=== PATIENT | female | born 1980 | race Caucasian/White ===

== ENCOUNTER 2016-03-19 13:34 | Inpatient (IN) | payer OTHER ==
[~2016-03-19] VITALS: Ht 162.6 cm; Wt 166.0 kg
[~2016-03-19 13:34] MED LIST: ACETAMINOPHEN-1 EAC1 PO; AMOXICILLIN500 M1 PO; AMOXICILLIN875 MG PO; ANTI-ANXIETY MED; ANTIDEPRESSANT; ATENOLOL/CHLOR1 EAC1 PO; AUGMENTIN875 MG PO; AZITHROMYCIN500 M1 PO; BACTRIM,SEPT1 TABLET PO; BENTYL10 MG PO; BENZONATATE200 MG PO; BUPROPION XL150 MG PO; BUTALB-APAP-CA1 EACH PO; CEFPROZIL500 MG PO; CEFTIN500 MG PO; CHERATUSSIN AC473 ML PO; CLEOCIN300 MG PO; CLINDAMYCIN HC300 MG PO; CLONAZEPAM0.5 MG PO; CYCLOBENZAPRINE10 MG PO; DICLOFENAC SOD100 MG PO; DICLOFENAC SODI75 MG PO; DITROPAN XL10 MG PO; DOXYCYCLINE HY100 MG PO; DULERA 200 MCG/13 GM IH; DUONEB 2.5-0.5 M3 ML AEROSOL; ENDOCET 5-3251 EACH PO; ERGOCALCIF50000 UNIT PO; ESCITALOPRAM OX10 MG PO; FIORICET 50-301 EACH PO; FIORICET,ESG1 TABLET PO; FLEXERIL10 MG PO; FLOMAX0.4 MG PO; FLONASE16 G1 BOTH NARES; GABAPENTIN100 MG PO; GEODON40 MG PO; HYCODAN SYRUP480 ML PO; HYDROCHLOROTH12.5 M3 PO; HYDROCODON-ACE1 EAC7 PO; HYDROCODON-ACE1 EACH; IBUPROFEN600 MG PO; IBUPROFEN800 MG PO; IMITREX100 MG PO; INDOCIN25 MG PO; KEFLEX500 MG PO; KETOROLAC TROME10 MG PO; KLONOPIN0.5 M1 PO; LEVAQUIN500 MG PO; LEVAQUIN750 MG PO; LEXAPRO10 MG PO; LIDOCAINE20 MG/1 M5 PO; LISINOPRIL-HCT1 EACH PO; LORTAB 5-325 M1 EACH PO; MACROBID100 MG PO; MEDROL DOSEPAK4 MG PO; MIRTAZAPINE15 MG PO; MOBIC15 MG PO; MOTION SICKNESS25 M4 PO; MOTRIN600 MG PO; MOTRIN800 MG PO; NAPROSYN500 MG PO; NAPROXEN375 MG PO; NAPROXEN500 MG PO; NICOTINE PATCH1 EAC2 TD; NORCO 5/3251 TABLET PO; NORCO 7.5/321 TABLET PO; OMEPRAZOLE20 M2 PO; OXYBUTYNIN CHLO10 MG PO; PANTOPRAZOLE SO40 MG PO; PAXIL30 MG PO; PEN-VEE K,VEET500 MG PO; PERCOCET 10/1 TABLET PO; PERCOCET 5/31 TABLET PO; PHENERGAN-CODE120 ML PO; PIROXICAM10 MG PO; PREDNISONE10 M1 PO; PREDNISONE10 MG PO; PREDNISONE20 MG PO; PREDNISONE50 MG PO; PROAIR HFA8.5 GM IH; PROBIOTIC250 MG PO; PROMETHAZINE HC25 M1 PO; PROVENTIL,2.5 MG/3 M IH; PROVERA,CYCRIN10 MG PO; PYRIDIUM200 MG PO; QUETIAPINE FUM100 MG PO; QUETIAPINE FUM300 MG PO; QUETIAPINE FUMA50 MG PO; REGLAN10 MG PO; REMERON15 M2 PO; ROBITUSSIN AC,T10 ML PO; ROBITUSSIN100 MG/5 M PO; SEROQUEL300 MG PO; SEROQUEL400 MG PO; SEROQUEL50 MG PO; SINGULAIR10 MG PO; SUMATRIPTAN SU100 MG PO; SYMBICORT60 INHALAT IH; TENORETIC 501 TABLET PO; TESSALON PERLE100 MG PO; TOPAMAX25 MG PO; TOPIRAMATE25 MG PO; TORADOL10 MG PO; TRAMADOL HCL50 MG PO; TYLENOL EXTRA500 MG PO; TYLENOL REGULA325 MG PO; TYLENOL WITH C1 EACH PO; ULTRACET1 TABLET PO; ULTRAM50 MG PO; VENTOLIN HFA18 GM IH; VITAMIN D250000 UNIT PO; VITAMIN D50000 UNI4 PO; VOLTAREN-XR100 MG PO; VOLTAREN75 MG PO; WELLBUTRIN XL150 MG PO; WELLBUTRIN XL300 MG PO; ZANTAC150 MG PO; ZEBUTAL 50-3251 EACH PO; ZITHROMAX Z-PA250 MG PO; ZITHROMAX250 MG PO; ZOFRAN ODT4 MG PO; ZOFRAN ODT8 MG PO; ZOLPIDEM TARTRAT5 MG PO; [UNRECOGNIZED DRUG - REMARK]
[2016-03-19 15:55] LABS: HEMATOCRIT 34.7 % (36.0-46.0); MCH 29.1 PG (29.0-34.0); MCV 85.5 FL (83-99); MEAN PLAT.VOLUME 8.9 uM^3 (9.5-12.4); PLATELET COUNT 179 K/uL (156-360); RBC DIS.WIDTH-CV 13.4 % (11.8-14.6); RED BLOOD COUNT 4.06 M/uL (3.80-5.20); WHITE BLOOD COUNT 3.4 K/uL (4.1-10.2)
[2016-03-19 16:06] LABS: CHLORIDE 104 mEq/L (99-109); POTASSIUM 3.4 mEq/L (3.7-5.4); SODIUM 138 mEq/L (136-147)
[2016-03-19 16:08] LABS: GLUCOSE 118 mg/dL (70-99)
[2016-03-19 16:09] LABS: ANION GAP 9 MEQ/L (2-14)
[2016-03-19 16:12] LABS: GFR ESTIMATE (CALCULATED) > 59 mL/min/
[2016-03-19 16:13] LABS: UREA NITROGEN (BUN) 10 mg/dL (9-23)
[2016-03-19 16:16] LABS: D-DIMER ELISA 1.45 mg/L FEU (< 0.57); INTER. NORMALIZED RATIO 1.1; PROTHROMBIN TIME 11.1 (9.2-11.2); PTT 28.9 (25-32)
[2016-03-19 16:18] LABS: TROP-I INTERPRETATION NEGATIVE; TROPONIN-I < 0.01 ng/mL (0.0-0.30)
[2016-03-19] MEDS ORDERED: PREDNISONE20 MG PO (18:56)
[2016-03-19] MEDS ORDERED: TYLENOL EXTRA500 MG PO (18:57)
[2016-03-19] MEDS ORDERED: CLONAZEPAM0.5 MG PO ×2 (18:57→18:58)
[2016-03-19] MEDS ORDERED: ZIPRASIDONE HCL40 MG PO (18:57)
[2016-03-19] MEDS ORDERED: LEXAPRO10 MG PO (18:57)
[2016-03-19] MEDS ORDERED: SEROQUEL300 MG PO ×2 (18:59)
[2016-03-19] MEDS ORDERED: BUPROPION XL300 MG PO (18:59)
[2016-03-19] MEDS ORDERED: GABAPENTIN300 MG PO ×2 (19:00)
[2016-03-19 21:20] LABS: TOTAL BILIRUBIN 0.5 mg/dL (0.0-1.0)
[2016-03-19 21:21] LABS: ALKALINE PHOSPHATASE 80 IU/L (3-129)
[2016-03-19 21:24] LABS: DIRECT BILIRUBIN 0.2 mg/dL (0.0-0.3)
[2016-03-19 21:55] VITALS: BP 128/60
[2016-03-20 04:00] VITALS: BP 132/63
[2016-03-20 07:03] LABS: EOSINOPHIL (%) 0 % (0-5); HEMATOCRIT 36.5 % (36.0-46.0); LYMPHOCYTE COUNT 0.6 K/uL (1.0-2.8); MCH 28.7 PG (29.0-34.0); MCV 84.5 FL (83-99); MEAN PLAT.VOLUME 9.2 uM^3 (9.5-12.4); MONOCYTE (%) 6.1 % (3-12); MONOCYTE COUNT 0.2 K/uL (0-0.8); NEUTROPHIL (%) 73.7 % (45-76); NEUTROPHIL COUNT 2.1 K/uL (1.8-6.4); PLATELET COUNT 199 K/uL (156-360); RBC DIS.WIDTH-CV 13.3 % (11.8-14.6); RBC DIS.WIDTH-SD 40.6 % (39-53); RED BLOOD COUNT 4.32 M/uL (3.80-5.20); WHITE BLOOD COUNT 2.8 K/uL (4.1-10.2)
[2016-03-20 07:35] VITALS: BP 153/83
[2016-03-20 07:36] LABS: ANION GAP 10 MEQ/L (2-14); CHLORIDE 104 MEQ/L (99-109); GFR ESTIMATE (CALCULATED) > 59 mL/min/; GLUCOSE 158 mg/dL (70-99); SAMPLE HEMOLYSIS CHECK 0; SAMPLE ICTERIC CHECK 0; SAMPLE LIPEMIA CHECK 0; SODIUM 139 MEQ/L (136-147); UREA NITROGEN (BUN) 11 mg/dL (9-23)
[2016-03-20 07:38] LABS: POTASSIUM 4.5 MEQ/L (3.7-5.4)
[2016-03-20 07:41] LABS: INTERNAL CONTROL VALID? YES
[2016-03-20 11:03] VITALS: BP 126/59
[2016-03-20 15:50] VITALS: BP 140/71
[2016-03-20 20:00] VITALS: BP 148/80
[2016-03-20 23:35] VITALS: BP 173/81
[2016-03-21 03:20] VITALS: BP 142/68
[2016-03-21 07:33] LABS: ANION GAP 11 MEQ/L (2-14); CHLORIDE 104 MEQ/L (99-109); GFR ESTIMATE (CALCULATED) > 59 mL/min/; GLUCOSE 183 mg/dL (70-99); POTASSIUM 4.4 MEQ/L (3.7-5.4); SAMPLE HEMOLYSIS CHECK 0; SAMPLE ICTERIC CHECK 0; SAMPLE LIPEMIA CHECK 0; SODIUM 138 MEQ/L (136-147); UREA NITROGEN (BUN) 14 mg/dL (9-23)
[2016-03-21 07:42] LABS: BASOPHIL COUNT 0.1 K/uL (0-0.1); EOSINOPHIL (%) 0 % (0-5); HEMATOCRIT 37.3 % (36.0-46.0); IMMATURE GRANULOCYTE (%) 0.2 % (0.0-0.7); LYMPHOCYTE COUNT 0.9 K/uL (1.0-2.8); MCH 29.4 PG (29.0-34.0); MCV 86.3 FL (83-99); MEAN PLAT.VOLUME 9.5 uM^3 (9.5-12.4); MONOCYTE (%) 7.4 % (3-12); MONOCYTE COUNT 0.4 K/uL (0-0.8); NEUTROPHIL (%) 73.5 % (45-76); NEUTROPHIL COUNT 3.7 K/uL (1.8-6.4); PLATELET COUNT 235 K/uL (156-360); RBC DIS.WIDTH-CV 13.4 % (11.8-14.6); RBC DIS.WIDTH-SD 42.4 % (39-53); RED BLOOD COUNT 4.32 M/uL (3.80-5.20)
[2016-03-21 07:46] VITALS: BP 112/68
[2016-03-21 11:57] VITALS: BP 142/84
[2016-03-21 15:00] VITALS: BP 132/78
[2016-03-22] VITALS: BP 142/83
[2016-03-22 07:51] VITALS: BP 117/65
[2016-03-22 09:04] LABS: HEMATOCRIT 39.9 % (36.0-46.0); MCH 28.6 PG (29.0-34.0); MCHC 32.8 G/DL (30.0-36.0); MCV 87.1 FL (83-99); MEAN PLAT.VOLUME 9.2 uM^3 (9.5-12.4); PLATELET COUNT 223 K/uL (156-360); RBC DIS.WIDTH-CV 13.7 % (11.8-14.6); RBC DIS.WIDTH-SD 43.2 % (39-53); RED BLOOD COUNT 4.58 M/uL (3.80-5.20); WHITE BLOOD COUNT 5.8 K/uL (4.1-10.2)
[2016-03-22 09:20] LABS: ANION GAP 11 MEQ/L (2-14); CHLORIDE 102 MEQ/L (99-109); POTASSIUM 4.7 MEQ/L (3.7-5.4); SAMPLE HEMOLYSIS CHECK 0; SAMPLE ICTERIC CHECK 0; SAMPLE LIPEMIA CHECK 0; SODIUM 136 MEQ/L (136-147)
[2016-03-22 09:25] LABS: GFR ESTIMATE (CALCULATED) > 59 mL/min/; GLUCOSE 221 mg/dL (70-99); UREA NITROGEN (BUN) 12 mg/dL (9-23)
[2016-03-22 09:36] LABS: BASOPHIL COUNT 0.1 K/uL (0-0.1); EOSINOPHIL (%) 0 % (0-5); IMMATURE GRANULOCYTE (%) 0.5 % (0.0-0.7); LYMPHOCYTE COUNT 0.8 K/uL (1.0-2.8); MONOCYTE (%) 3.8 % (3-12); MONOCYTE COUNT 0.2 K/uL (0-0.8); NEUTROPHIL (%) 80.8 % (45-76); NEUTROPHIL COUNT 4.7 K/uL (1.8-6.4)
[2016-03-22 16:01] VITALS: BP 138/92
[2016-03-23] VITALS: BP 143/87
[2016-03-23 07:12] LABS: HEMATOCRIT 40.3 % (36.0-46.0); MCH 28.6 PG (29.0-34.0); MCHC 33.3 G/DL (30.0-36.0); MCV 86.1 FL (83-99); MEAN PLAT.VOLUME 9.3 uM^3 (9.5-12.4); PLATELET COUNT 242 K/uL (156-360); RBC DIS.WIDTH-CV 13.5 % (11.8-14.6); RBC DIS.WIDTH-SD 42.5 % (39-53); RED BLOOD COUNT 4.68 M/uL (3.80-5.20); WHITE BLOOD COUNT 7.2 K/uL (4.1-10.2)
[2016-03-23 07:36] LABS: EOSINOPHIL (%) 0 % (0-5); IMMATURE GRANULOCYTE (%) 0.6 % (0.0-0.7); LYMPHOCYTE COUNT 0.9 K/uL (1.0-2.8); MONOCYTE (%) 4.6 % (3-12); MONOCYTE COUNT 0.3 K/uL (0-0.8); NEUTROPHIL (%) 82.6 % (45-76); NEUTROPHIL COUNT 5.9 K/uL (1.8-6.4)
[2016-03-23 07:39] LABS: ANION GAP 10 MEQ/L (2-14); CHLORIDE 98 MEQ/L (99-109); GFR ESTIMATE (CALCULATED) > 59 mL/min/; GLUCOSE 225 mg/dL (70-99); POTASSIUM 4.7 MEQ/L (3.7-5.4); SAMPLE HEMOLYSIS CHECK 0; SAMPLE ICTERIC CHECK 0; SAMPLE LIPEMIA CHECK 0; SODIUM 135 MEQ/L (136-147); UREA NITROGEN (BUN) 16 mg/dL (9-23)
[2016-03-23 07:45] VITALS: BP 130/70
[2016-03-23] MEDS ORDERED: CEFTIN500 MG PO (13:01)
[2016-03-23] MEDS ORDERED: SEROQUEL300 MG PO ×2 (13:01)
[2016-03-23] MEDS ORDERED: VENTOLIN HFA18 GM IH (13:01)
[2016-03-23] MEDS ORDERED: PROVENTIL,2.5 MG/3 M IH (13:01)
[2016-03-23] MEDS ORDERED: PREDNISONE20 MG PO (13:01)
[2016-03-23] MEDS ORDERED: GABAPENTIN300 MG PO ×2 (13:01)
== END 2016-03-23 13:20 | disposition home or self-care (01) | DRG 190 ==
LOC: EME 13:34 → 2EAST 20:18 → EDOF 20:18 → 2EAST 21:51
PROVIDERS: Emergency Medicine; Hospitalist; Internal Medicine
DX: J44.0 Chronic obstructive pulmonary disease with (acute) lower respiratory infection (principal); J15.9 Unspecified bacterial pneumonia; J45.901 Unspecified asthma with (acute) exacerbation; J96.01 Acute respiratory failure with hypoxia; J44.1 Chronic obstructive pulmonary disease with (acute) exacerbation; E87.6 Hypokalemia; E66.01 Morbid (severe) obesity due to excess calories; Z68.44 Body mass index [BMI] 60.0-69.9, adult; D64.9 Anemia, unspecified; F31.9 Bipolar disorder, unspecified; F41.9 Anxiety disorder, unspecified; Z87.891 Personal history of nicotine dependence
CPT/HCPCS: 71010; 71020; 71275; 80048; 80053; 80076; 83605; 84484; 84702; 85025; 85027; 85379; 85610; 85730; 87040; 87070; 87205; 87449; 93005; 94640; 94640 76; 94644; 94760; 94799; 99202; 99281; 99284; 99285; J0456; J0692; J0696; J1100; J1644; J1885; J1956; J2930; J3475; J7030; J7050; J7512; J7644

== ENCOUNTER 2016-03-27 18:56 | Emergency (ER) | payer OTHER ==
[~2016-03-27] VITALS: Ht 162.6 cm; Wt 159.5 kg
[~2016-03-27 18:56] MED LIST changes: +BUPROPION XL300 MG PO; +GABAPENTIN300 MG PO; +ZIPRASIDONE HCL40 MG PO
[2016-03-27] MEDS ORDERED: BACTRIM,SEPT1 TABLET PO (21:32)
[2016-03-27] MEDS ORDERED: BACTROBAN CREAM15 GM TP (21:32)
[2016-03-27] MEDS ORDERED: BENADRYL25 MG PO (21:32)
[2016-03-27 21:50] VITALS: BP 143/96
== END 2016-03-27 21:52 | disposition home or self-care (01) ==
LOC: EME 18:56
DX: B95.8 Unspecified staphylococcus as the cause of diseases classified elsewhere (principal); J45.909 Unspecified asthma, uncomplicated; J44.9 Chronic obstructive pulmonary disease, unspecified; I10 Essential (primary) hypertension; K21.9 Gastro-esophageal reflux disease without esophagitis; Z86.14 Personal history of Methicillin resistant Staphylococcus aureus infection; Z87.891 Personal history of nicotine dependence
CPT/HCPCS: 99281; 99283

== ENCOUNTER 2016-05-03 14:01 | Emergency (ER) | payer OTHER ==
[~2016-05-03] VITALS: Ht 162.6 cm; Wt 160.5 kg
[~2016-05-03 14:01] MED LIST changes: +BACTROBAN CREAM15 GM TP; +BENADRYL25 MG PO
[2016-05-03] MEDS ORDERED: NAPROXEN500 MG PO (15:12)
[2016-05-03 15:40] VITALS: BP 142/88
== END 2016-05-03 15:41 | disposition home or self-care (01) ==
LOC: EME 14:01
PROC: 3E0T3BZ Introduction of Anesthetic Agent into Peripheral Nerves and Plexi, Percutaneous Approach (ICD-10-PCS; principal; 2016-05-03)
DX: M54.81 Occipital neuralgia (principal); S39.012A Strain of muscle, fascia and tendon of lower back, initial encounter; X58.XXXA Exposure to other specified factors, initial encounter; J44.9 Chronic obstructive pulmonary disease, unspecified; J45.909 Unspecified asthma, uncomplicated; Z87.891 Personal history of nicotine dependence
CPT/HCPCS: 99281; 99283

== ENCOUNTER 2016-05-11 11:47 | Emergency (ER) | payer OTHER ==
[~2016-05-11] VITALS: Ht 162.6 cm; Wt 145.4 kg
[2016-05-11 14:05] LABS: EOSINOPHIL (%) 2.7 % (0-5); EOSINOPHIL COUNT 0.2 K/uL (0-0.3); HEMATOCRIT 34.4 % (36.0-46.0); IMMATURE GRANULOCYTE (%) 0.2 % (0.0-0.7); IMMATURE GRANULOCYTE COUNT 0.1 K/uL; LYMPHOCYTE COUNT 1.7 K/uL (1.0-2.8); MCH 29.5 PG (29.0-34.0); MCHC 35.2 G/DL (30.0-36.0); MCV 83.9 FL (83-99); MONOCYTE (%) 8.8 % (3-12); MONOCYTE COUNT 0.5 K/uL (0-0.8); NEUTROPHIL COUNT 3.2 K/uL (1.8-6.4); PLATELET COUNT 241 K/uL (156-360); RBC DIS.WIDTH-CV 14.2 % (11.8-14.6); RBC DIS.WIDTH-SD 42.1 % (39-53); WHITE BLOOD COUNT 5.5 K/uL (4.1-10.2)
[2016-05-11 14:17] LABS: CHLORIDE 109 mEq/L (99-109); SODIUM 139 mEq/L (136-147)
[2016-05-11 14:19] LABS: GLUCOSE 93 mg/dL (70-99)
[2016-05-11 14:21] LABS: ANION GAP 10 MEQ/L (2-14)
[2016-05-11 14:23] LABS: GFR ESTIMATE (CALCULATED) > 59 mL/min/
[2016-05-11 14:24] LABS: UREA NITROGEN (BUN) 11 mg/dL (9-23)
[2016-05-11] MEDS ORDERED: TYLENOL WITH C1 EACH PO (14:33)
[2016-05-11 14:44] VITALS: BP 127/88
== END 2016-05-11 14:44 | disposition home or self-care (01) ==
LOC: EME → EDBD 11:47 → EME 11:47
PROVIDERS: Emergency Medicine
DX: G43.909 Migraine, unspecified, not intractable, without status migrainosus (principal); J45.909 Unspecified asthma, uncomplicated; J44.9 Chronic obstructive pulmonary disease, unspecified; I10 Essential (primary) hypertension; K21.9 Gastro-esophageal reflux disease without esophagitis; Z87.891 Personal history of nicotine dependence
CPT/HCPCS: 70450; 80048; 85025; 93005; 99281; 99284

== ENCOUNTER 2016-05-28 21:53 | Emergency (ER) | payer OTHER ==
[~2016-05-28] VITALS: Ht 162.6 cm; Wt 167.0 kg
[2016-05-28 23:18] LABS: INFLUENZA A VIRAL ANTIGEN NEGATIVE; INFLUENZA B VIRAL ANTIGEN NEGATIVE
[2016-05-28] MEDS ORDERED: ROBITUSSIN AC,T10 ML PO (23:37)
[2016-05-28] MEDS ORDERED: ZITHROMAX Z-PA250 MG PO (23:37)
[2016-05-28] MEDS ORDERED: PREDNISONE20 MG PO (23:37)
[2016-05-29 00:04] VITALS: BP 157/99
== END 2016-05-29 00:05 | disposition home or self-care (01) ==
LOC: EME 21:53
PROVIDERS: Emergency Medicine
DX: J06.9 Acute upper respiratory infection, unspecified (principal); J02.9 Acute pharyngitis, unspecified; J44.9 Chronic obstructive pulmonary disease, unspecified; J45.909 Unspecified asthma, uncomplicated
CPT/HCPCS: 87502; 87651 90; 99281; 99283; J7512

== ENCOUNTER 2016-06-03 18:35 | Emergency (ER) | payer OTHER ==
[~2016-06-03] VITALS: Ht 162.6 cm; Wt 169.8 kg
[2016-06-03 19:16] LABS: HEMATOCRIT 39.5 % (36.0-46.0); MCHC 33.9 G/DL (30.0-36.0); MCV 85.5 FL (83-99); PLATELET COUNT 307 K/uL (156-360); RBC DIS.WIDTH-SD 40.1 % (39-53); RED BLOOD COUNT 4.62 M/uL (3.80-5.20)
[2016-06-03 19:23] LABS: WHITE BLOOD COUNT 8.2 K/uL (4.1-10.2)
[2016-06-03 19:26] LABS: CHLORIDE 104 mEq/L (99-109); POTASSIUM 4.2 mEq/L (3.7-5.4)
[2016-06-03 19:27] LABS: SODIUM 141 mEq/L (136-147)
[2016-06-03 19:29] LABS: GLUCOSE 107 mg/dL (70-99)
[2016-06-03 19:30] LABS: ANION GAP 10 MEQ/L (2-14)
[2016-06-03 19:31] LABS: TOTAL BILIRUBIN 0.6 mg/dL (0.0-1.0)
[2016-06-03 19:32] LABS: ALKALINE PHOSPHATASE 77 IU/L (3-129); GFR ESTIMATE (CALCULATED) > 59 mL/min/
[2016-06-03 19:34] LABS: UREA NITROGEN (BUN) 15 mg/dL (9-23)
[2016-06-03 19:42] LABS: QUANTITATIVE HCG < 4.0 MIU/ML
[2016-06-03 21:43] LABS: ADD MIUA? YES; BILIRUBIN NEGATIVE; BLOOD NEGATIVE; COLOR YELLOW ((YELLOW)); GLUCOSE (STRIP) NEGATIVE; KETONES NEGATIVE; LEUKOCYTES MODERATE; NITRITE NEGATIVE; PROTEIN (STRIP) NEGATIVE; SPECIFIC GRAVITY 1.024 (1.000-1.030); UROBILINOGEN 0.2 MG/DL (0.2-1.0)
[2016-06-03 22:12] VITALS: BP 156/84
[2016-06-03 22:21] LABS: BACTERIA RARE /HPF; BUDDING YEAST RARE; CALCIUM OXALATE CRYSTALS 1+ /HPF; EPITHELIAL CELLS 3+ /HPF; MUCUS TRACE /LPF; UCUL ADDED? NO; UNCLASSIFIED CASTS 0-5 /LPF
== END 2016-06-03 22:13 | disposition home or self-care (01) ==
LOC: EME 18:35
DX: R10.31 Right lower quadrant pain (principal); R51 Headache; J45.909 Unspecified asthma, uncomplicated; J44.9 Chronic obstructive pulmonary disease, unspecified; K21.9 Gastro-esophageal reflux disease without esophagitis; Z87.891 Personal history of nicotine dependence
CPT/HCPCS: 80053; 81003; 84702; 85027; J1885

== ENCOUNTER 2016-06-18 18:06 | Emergency (ER) | payer OTHER ==
[~2016-06-18] VITALS: Ht 162.6 cm; Wt 163.6 kg
[2016-06-18 21:32] LABS: MCH 28.9 PG (29.0-34.0); MCHC 33.8 G/DL (30.0-36.0); MCV 85.6 FL (83-99); MEAN PLAT.VOLUME 9.5 uM^3 (9.5-12.4); PLATELET COUNT 269 K/uL (156-360); RBC DIS.WIDTH-CV 13.2 % (11.8-14.6); RBC DIS.WIDTH-SD 40.8 % (39-53); RED BLOOD COUNT 4.32 M/uL (3.80-5.20); WHITE BLOOD COUNT 7.1 K/uL (4.1-10.2)
[2016-06-18 21:42] LABS: CHLORIDE 110 mEq/L (99-109); SODIUM 143 mEq/L (136-147)
[2016-06-18 21:44] LABS: GLUCOSE 114 mg/dL (70-99)
[2016-06-18 21:45] LABS: ANION GAP 9 MEQ/L (2-14)
[2016-06-18 21:46] LABS: TOTAL BILIRUBIN 0.5 mg/dL (0.0-1.0)
[2016-06-18 21:47] LABS: ALKALINE PHOSPHATASE 72 IU/L (3-129)
[2016-06-18 21:48] LABS: GFR ESTIMATE (CALCULATED) > 59 mL/min/
[2016-06-18 21:49] LABS: D-DIMER ELISA 0.68 mg/L FEU (< 0.57); UREA NITROGEN (BUN) 17 mg/dL (9-23)
[2016-06-18 21:51] LABS: LIPASE 14 U/L (1.0-51.0)
[2016-06-18 21:58] LABS: QUANTITATIVE HCG < 4.0 MIU/ML
[2016-06-18 22:04] LABS: ADD MIUA? YES; BILIRUBIN NEGATIVE; BLOOD NEGATIVE; COLOR YELLOW ((YELLOW)); GLUCOSE (STRIP) NEGATIVE; KETONES NEGATIVE; LEUKOCYTES NEGATIVE; NITRITE NEGATIVE; PROTEIN (STRIP) NEGATIVE
[2016-06-18 22:35] LABS: AMORPHOUS URATES CRYSTALS 4+; BACTERIA NONE SEEN /HPF; EPITHELIAL CELLS 1+ /HPF; MUCUS NONE SEEN /LPF; RED BLOOD CELLS 0-5 /HPF (0-5); UCUL ADDED? NO; WHITE BLOOD CELLS 0-5 /HPF (0-5)
[2016-06-19] MEDS ORDERED: TRAMADOL HCL50 MG PO (00:05)
[2016-06-19] MEDS ORDERED: LEVAQUIN750 MG PO (00:05)
[2016-06-19] MEDS ORDERED: ZOFRAN ODT4 MG PO (00:25)
[2016-06-19 01:03] VITALS: BP 150/115
[2016-06-20] MEDS ORDERED: ZITHROMAX Z-PA250 MG PO (22:05)
== END 2016-06-19 01:05 | disposition home or self-care (01) ==
LOC: RME 18:06 → EME 18:06 → RME 06-19 01:05
PROVIDERS: Nurse Practitioner Family; Physician Assistant
DX: J18.9 Pneumonia, unspecified organism (principal); R60.0 Localized edema; R10.2 Pelvic and perineal pain; Z90.710 Acquired absence of both cervix and uterus; M54.5 Low back pain; R79.1 Abnormal coagulation profile; J44.9 Chronic obstructive pulmonary disease, unspecified; J45.909 Unspecified asthma, uncomplicated; E66.01 Morbid (severe) obesity due to excess calories; Z68.44 Body mass index [BMI] 60.0-69.9, adult; Z87.891 Personal history of nicotine dependence
CPT/HCPCS: 71020; 80053; 81003; 83690; 83880; 84702; 85027; 85379; 93970; 99281; 99284

== ENCOUNTER 2016-06-20 17:23 | Emergency (ER) | payer OTHER ==
[~2016-06-20] VITALS: Ht 162.6 cm; Wt 173.5 kg
[2016-06-20 18:11] LABS: HEMATOCRIT 37.1 % (36.0-46.0); MCHC 33.4 G/DL (30.0-36.0); MCV 86.7 FL (83-99); PLATELET COUNT 279 K/uL (156-360); RBC DIS.WIDTH-CV 13.3 % (11.8-14.6); RBC DIS.WIDTH-SD 41.6 % (39-53); RED BLOOD COUNT 4.28 M/uL (3.80-5.20); WHITE BLOOD COUNT 7.3 K/uL (4.1-10.2)
[2016-06-20 18:20] LABS: CHLORIDE 106 mEq/L (99-109); SODIUM 139 mEq/L (136-147)
[2016-06-20 18:22] LABS: GLUCOSE 113 mg/dL (70-99)
[2016-06-20 18:23] LABS: ANION GAP 9 MEQ/L (2-14)
[2016-06-20 18:24] LABS: TOTAL BILIRUBIN 0.4 mg/dL (0.0-1.0)
[2016-06-20 18:26] LABS: ALKALINE PHOSPHATASE 67 IU/L (3-129); GFR ESTIMATE (CALCULATED) > 59 mL/min/
[2016-06-20 18:27] LABS: UREA NITROGEN (BUN) 15 mg/dL (9-23)
[2016-06-20 20:19] LABS: QUANTITATIVE HCG < 4.0 MIU/ML
[2016-06-20 21:06] LABS: ADD MIUA? NO; BILIRUBIN NEGATIVE; BLOOD NEGATIVE; COLOR YELLOW ((YELLOW)); GLUCOSE (STRIP) NEGATIVE; KETONES NEGATIVE; LEUKOCYTES NEGATIVE; NITRITE NEGATIVE; PROTEIN (STRIP) NEGATIVE; SPECIFIC GRAVITY 1.017 (1.000-1.030); UCUL ADDED? NO; UROBILINOGEN 0.2 MG/DL (0.2-1.0)
[2016-06-20] MEDS ORDERED: ZITHROMAX Z-PA250 MG PO (22:05)
[2016-06-20 22:23] VITALS: BP 147/91
== END 2016-06-20 22:37 | disposition home or self-care (01) ==
LOC: EME 17:23
DX: J18.9 Pneumonia, unspecified organism (principal); R60.0 Localized edema; R10.30 Lower abdominal pain, unspecified; M54.5 Low back pain; R33.9 Retention of urine, unspecified; J44.9 Chronic obstructive pulmonary disease, unspecified; J45.909 Unspecified asthma, uncomplicated; Z87.891 Personal history of nicotine dependence
CPT/HCPCS: 71020; 80053; 81003; 84702; 85027; 99281; 99284

== ENCOUNTER 2016-06-22 20:26 | Emergency (ER) | payer OTHER ==
[~2016-06-22] VITALS: Ht 162.6 cm; Wt 172.1 kg
[2016-06-22] MEDS ORDERED: ULTRAM50 MG PO (20:57)
[2016-06-22 21:03] VITALS: BP 118/83
== END 2016-06-22 21:06 | disposition home or self-care (01) ==
LOC: EME 20:26
DX: M54.5 Low back pain (principal); G62.9 Polyneuropathy, unspecified; G89.29 Other chronic pain
CPT/HCPCS: 99281; 99283

== ENCOUNTER 2016-07-11 13:09 | Inpatient (IN) | payer OTHER ==
[~2016-07-11] VITALS: Ht 162.6 cm; Wt 170.4 kg
[2016-07-11] MEDS ORDERED: ROXICODONE15 MG PO (13:52)
[2016-07-11] MEDS ORDERED: REMERON15 M2 PO (16:14)
[2016-07-11 16:24] LABS: EOSINOPHIL (%) 1.3 % (0-5); EOSINOPHIL COUNT 0.1 K/uL (0-0.3); HEMATOCRIT 37.5 % (36.0-46.0); IMMATURE GRANULOCYTE (%) 0.4 % (0.0-0.7); INSTRUMENT ABS NEUTROPHIL CT 4.2 K/uL; LYMPHOCYTE COUNT 1.8 K/uL (1.0-2.8); MCH 29.3 PG (29.0-34.0); MCHC 34.7 G/DL (30.0-36.0); MCV 84.5 FL (83-99); MEAN PLAT.VOLUME 9.3 uM^3 (9.5-12.4); MONOCYTE (%) 9.3 % (3-12); MONOCYTE COUNT 0.6 K/uL (0-0.8); NEUTROPHIL (%) 62.7 % (45-76); NEUTROPHIL COUNT 4.2 K/uL (1.8-6.4); PLATELET COUNT 245 K/uL (156-360); RBC DIS.WIDTH-CV 12.7 % (11.8-14.6); RED BLOOD COUNT 4.44 M/uL (3.80-5.20); WHITE BLOOD COUNT 6.8 K/uL (4.1-10.2)
[2016-07-11 16:38] LABS: SERUM ETHYL ALCOHOL < 10 mg/dL
[2016-07-11 16:48] LABS: QUANTITATIVE HCG < 4.0 MIU/ML
[2016-07-11 18:23] VITALS: BP 152/93
[2016-07-11 18:27] VITALS: BP 152/93
[2016-07-11] MEDS ORDERED: ZESTORETIC 20-1 EAC1 PO (20:07)
[2016-07-11] MEDS ORDERED: INDOMETHACIN25 MG PO (20:08)
[2016-07-11] MEDS ORDERED: RELPAX40 MG PO (20:09)
[2016-07-12 08:02] VITALS: BP 176/72
[2016-07-12] MEDS ORDERED: BUSPIRONE HCL10 MG PO (10:23)
[2016-07-12] MEDS ORDERED: KLONOPIN0.5 M1 PO (10:23)
== END 2016-07-12 12:29 | disposition home or self-care (01) | DRG 880 ==
LOC: EME 13:09 → EDOF 15:44 → 1WEST 15:44
PROVIDERS: Emergency Medicine
DX: F41.1 Generalized anxiety disorder (principal); F33.1 Major depressive disorder, recurrent, moderate; G89.29 Other chronic pain; M54.9 Dorsalgia, unspecified; J45.909 Unspecified asthma, uncomplicated; G43.909 Migraine, unspecified, not intractable, without status migrainosus; J44.9 Chronic obstructive pulmonary disease, unspecified; K21.9 Gastro-esophageal reflux disease without esophagitis; Z62.819 Personal history of unspecified abuse in childhood; E66.3 Overweight; R41.83 Borderline intellectual functioning
CPT/HCPCS: 81003; 84702; 85025; 90837; 94640; 99202; 99281; 99285; G0480

== ENCOUNTER 2016-07-20 18:56 | Emergency (ER) | payer OTHER ==
[~2016-07-20] VITALS: Ht 162.6 cm; Wt 166.6 kg
[~2016-07-20 18:56] MED LIST changes: +BUSPIRONE HCL10 MG PO; +INDOMETHACIN25 MG PO; +RELPAX40 MG PO; +ROXICODONE15 MG PO; +ZESTORETIC 20-1 EAC1 PO
[2016-07-20] MEDS ORDERED: PERCOCET 5/31 TABLET PO (19:30)
[2016-07-20] MEDS ORDERED: ZITHROMAX Z-PA250 MG PO (19:30)
[2016-07-20 19:59] VITALS: BP 101/86
== END 2016-07-20 20:03 | disposition home or self-care (01) ==
LOC: EME 18:56
DX: R51 Headache (principal); J32.9 Chronic sinusitis, unspecified; J40 Bronchitis, not specified as acute or chronic; J44.9 Chronic obstructive pulmonary disease, unspecified; J45.909 Unspecified asthma, uncomplicated; Z87.891 Personal history of nicotine dependence
CPT/HCPCS: 99281; 99282

== ENCOUNTER 2016-07-25 13:21 | Inpatient (IN) | payer OTHER ==
[~2016-07-25] VITALS: Ht 162.6 cm; Wt 173.4 kg
[2016-07-25 14:32] LABS: HEMATOCRIT 40.3 % (36.0-46.0); MCH 28.8 PG (29.0-34.0); MCHC 33.7 G/DL (30.0-36.0); MCV 85.4 FL (83-99); MEAN PLAT.VOLUME 9.6 uM^3 (9.5-12.4); PLATELET COUNT 241 K/uL (156-360); RBC DIS.WIDTH-CV 12.5 % (11.8-14.6); RBC DIS.WIDTH-SD 38.9 % (39-53); RED BLOOD COUNT 4.72 M/uL (3.80-5.20); WHITE BLOOD COUNT 5.2 K/uL (4.1-10.2)
[2016-07-25 14:44] LABS: CHLORIDE 106 mEq/L (99-109); POTASSIUM 4.4 mEq/L (3.7-5.4); SODIUM 141 mEq/L (136-147)
[2016-07-25 14:46] LABS: GLUCOSE 105 mg/dL (70-99)
[2016-07-25 14:47] LABS: ANION GAP 8 MEQ/L (2-14)
[2016-07-25 14:49] LABS: SERUM ETHYL ALCOHOL < 10 mg/dL
[2016-07-25 14:50] LABS: GFR ESTIMATE (CALCULATED) > 59 mL/min/
[2016-07-25 14:51] LABS: UREA NITROGEN (BUN) 21 mg/dL (9-23)
[2016-07-25 15:20] LABS: COCAINE NEGATIVE (150 ng/mL); METHAMPHETAMINE NEGATIVE (500 ng/mL); OPIATES (MORPHINE) PRESUMPTIVE POSITIVE (100 ng/mL); PHENCYCLIDINE NEGATIVE (25 ng/mL); THC CANNABINOIDS NEGATIVE (50 ng/mL)
[2016-07-25 15:21] LABS: AMPHETAMINE NEGATIVE (500 ng/mL); BARBITURATES NEGATIVE (200 ng/mL); BENZODIAZEPINES NEGATIVE (150 ng/mL); INTERNAL CONTROLS VALID? YES; METHADONE NEGATIVE (200 ng/mL); OXYCODONE NEGATIVE (100 ng/mL); PROPOXYPHENE NEGATIVE (300 ng/mL); TRICYCLIC ANTIDEPRESSANTS PRESUMPTIVE POSITIVE (300 ng/mL)
[2016-07-25 15:29] LABS: ADD MEDTOX COMMENT Y
[2016-07-25] MEDS ORDERED: ZESTORETIC 20-1 EAC1 PO (19:21)
[2016-07-25] MEDS ORDERED: CLONAZEPAM0.5 MG PO ×2 (19:22)
[2016-07-25] MEDS ORDERED: SEROQUEL100 MG PO (19:23)
[2016-07-25] MEDS ORDERED: LEXAPRO20 MG PO (19:23)
[2016-07-25] MEDS ORDERED: RELPAX40 MG PO (19:24)
[2016-07-25] MEDS ORDERED: SYMBICORT60 INHALA1 IH (19:24)
[2016-07-25] MEDS ORDERED: WELLBUTRIN XL300 MG PO (19:25)
[2016-07-25] MEDS ORDERED: LYRICA75 MG PO (19:25)
[2016-07-25] MEDS ORDERED: ZOMIG5 MG PO (19:25)
[2016-07-25] MEDS ORDERED: DULERA 200 MCG/13 GM IH (19:25)
[2016-07-25] MEDS ORDERED: GEODON40 MG PO (19:26)
[2016-07-25] MEDS ORDERED: MIRTAZAPINE15 MG PO (19:26)
[2016-07-25] MEDS ORDERED: TYLENOL WITH C1 EACH PO (19:26)
[2016-07-25] MEDS ORDERED: ADVAIR 250/501 DISK IH (19:26)
[2016-07-25] MEDS ORDERED: BENADRYL25 MG PO (19:27)
[2016-07-25] MEDS ORDERED: BENZONATATE200 MG PO (19:27)
[2016-07-25 19:58] VITALS: BP 160/98
[2016-07-26 07:39] VITALS: BP 154/84
[2016-07-26 15:17] VITALS: BP 122/76
[2016-07-27 07:38] VITALS: BP 164/90
[2016-07-27 15:37] VITALS: BP 150/87
[2016-07-28 07:46] VITALS: BP 122/71
[2016-07-28] MEDS ORDERED: BUSPAR15 MG PO (10:38)
== END 2016-07-28 13:16 | disposition home or self-care (01) | DRG 885 ==
LOC: EME 13:21 → 1WEST 18:31 → EDOF 18:31 → 1WEST 19:51
DX: F33.9 Major depressive disorder, recurrent, unspecified (principal); R45.851 Suicidal ideations; K21.9 Gastro-esophageal reflux disease without esophagitis; G89.29 Other chronic pain; M54.9 Dorsalgia, unspecified; J45.909 Unspecified asthma, uncomplicated; M25.562 Pain in left knee; F60.9 Personality disorder, unspecified; F41.1 Generalized anxiety disorder; E66.01 Morbid (severe) obesity due to excess calories; Z68.44 Body mass index [BMI] 60.0-69.9, adult; J44.9 Chronic obstructive pulmonary disease, unspecified
CPT/HCPCS: 80048; 84999; 85027; 90837; 94640; 94640 76; 97150 GO; 97165 GO; 99202; 99281; 99285; G0480

== ENCOUNTER 2016-08-20 10:00 | Observation (INO) | payer OTHER ==
[~2016-08-20] VITALS: Ht 162.6 cm; Wt 175.5 kg
[~2016-08-20 10:00] MED LIST changes: +ADVAIR 250/501 DISK IH; +BUSPAR15 MG PO; +LEXAPRO20 MG PO; +LYRICA75 MG PO; +SEROQUEL100 MG PO; +SYMBICORT60 INHALA1 IH; +ZOMIG5 MG PO
[2016-08-20 11:24] LABS: INTER. NORMALIZED RATIO 1.1; PROTHROMBIN TIME 11.7 (9.2-11.2); PTT 29.4 (25-32)
[2016-08-20 11:25] LABS: CHLORIDE 105 mEq/L (99-109); POTASSIUM 4.4 mEq/L (3.7-5.4); SODIUM 136 mEq/L (136-147)
[2016-08-20 11:26] LABS: EOSINOPHIL (%) 0.1 % (0-5); HEMATOCRIT 41.9 % (36.0-46.0); IMMATURE GRANULOCYTE (%) 0.7 % (0.0-0.7); IMMATURE GRANULOCYTE COUNT 0.1 K/uL; INSTRUMENT ABS NEUTROPHIL CT 14.2 K/uL; LYMPHOCYTE COUNT 0.4 K/uL (1.0-2.8); MCH 28.8 PG (29.0-34.0); MCHC 33.4 G/DL (30.0-36.0); MCV 86.2 FL (83-99); MEAN PLAT.VOLUME 9.7 uM^3 (9.5-12.4); MONOCYTE (%) 4.9 % (3-12); MONOCYTE COUNT 0.8 K/uL (0-0.8); NEUTROPHIL (%) 91.2 % (45-76); NEUTROPHIL COUNT 14.2 K/uL (1.8-6.4); PLATELET COUNT 239 K/uL (156-360); RBC DIS.WIDTH-CV 13.4 % (11.8-14.6); RBC DIS.WIDTH-SD 41.6 % (39-53); RED BLOOD COUNT 4.86 M/uL (3.80-5.20); WHITE BLOOD COUNT 15.6 K/uL (4.1-10.2)
[2016-08-20 11:27] LABS: GLUCOSE 162 mg/dL (70-99)
[2016-08-20 11:28] LABS: ANION GAP 10 MEQ/L (2-14)
[2016-08-20 11:29] LABS: TOTAL BILIRUBIN 1.3 mg/dL (0.0-1.0)
[2016-08-20 11:30] LABS: ALKALINE PHOSPHATASE 59 IU/L (3-129)
[2016-08-20 11:31] LABS: GFR ESTIMATE (CALCULATED) 55 mL/min/
[2016-08-20 11:32] LABS: UREA NITROGEN (BUN) 19 mg/dL (9-23)
[2016-08-20 11:34] LABS: LIPASE 15 U/L (1.0-51.0)
[2016-08-20 11:35] LABS: TROP-I INTERPRETATION NEGATIVE; TROPONIN-I < 0.01 ng/mL (0.0-0.30)
[2016-08-20 13:53] LABS: ADD MIUA? YES; BILIRUBIN NEGATIVE; BLOOD SMALL; COLOR YELLOW ((YELLOW)); GLUCOSE (STRIP) NEGATIVE; KETONES NEGATIVE; LEUKOCYTES MODERATE; NITRITE POSITIVE; PROTEIN (STRIP) NEGATIVE; SPECIFIC GRAVITY 1.018 (1.000-1.030); UROBILINOGEN 0.2 MG/DL (0.2-1.0)
[2016-08-20 14:16] LABS: BACTERIA 3+ /HPF; EPITHELIAL CELLS 1+ /HPF; MUCUS NONE SEEN /LPF; RED BLOOD CELLS 0-5 /HPF (0-5); UCUL ADDED? YES
[2016-08-20] MEDS ORDERED: INDOMETHACIN25 MG PO (16:05)
[2016-08-20 20:00] VITALS: BP 131/73
[2016-08-21 00:34] VITALS: BP 129/64
[2016-08-21 07:53] VITALS: BP 110/55
[2016-08-21 08:10] LABS: EOSINOPHIL (%) 0 % (0-5); HEMATOCRIT 41.7 % (36.0-46.0); IMMATURE GRANULOCYTE (%) 0.4 % (0.0-0.7); INSTRUMENT ABS NEUTROPHIL CT 7.3 K/uL; LYMPHOCYTE COUNT 0.4 K/uL (1.0-2.8); MCH 28.6 PG (29.0-34.0); MCHC 32.9 G/DL (30.0-36.0); MCV 87.1 FL (83-99); MEAN PLAT.VOLUME 9.7 uM^3 (9.5-12.4); MONOCYTE (%) 1.3 % (3-12); MONOCYTE COUNT 0.1 K/uL (0-0.8); NEUTROPHIL (%) 93.1 % (45-76); NEUTROPHIL COUNT 7.3 K/uL (1.8-6.4); PLATELET COUNT 214 K/uL (156-360); RBC DIS.WIDTH-CV 13.7 % (11.8-14.6); RED BLOOD COUNT 4.79 M/uL (3.80-5.20); WHITE BLOOD COUNT 7.8 K/uL (4.1-10.2)
[2016-08-21 08:36] LABS: CHLORIDE 108 mEq/L (99-109); SODIUM 137 mEq/L (136-147)
[2016-08-21 08:38] LABS: GLUCOSE 243 mg/dL (70-99)
[2016-08-21 08:40] LABS: ANION GAP 9 MEQ/L (2-14)
[2016-08-21 08:42] LABS: GFR ESTIMATE (CALCULATED) > 59 mL/min/
[2016-08-21 08:43] LABS: UREA NITROGEN (BUN) 11 mg/dL (9-23)
[2016-08-21] MEDS ORDERED: AZITHROMYCIN500 M1 PO (11:53)
[2016-08-21] MEDS ORDERED: DELTASONE20 M1 PO (11:53)
[2016-08-21] MEDS ORDERED: CEFTIN500 MG PO (11:53)
[2016-08-21 12:00] VITALS: BP 145/76
[2016-08-21] MEDS ORDERED: TYLENOL W/COD1 COMBO PO (12:05)
[2016-08-22 08:24] LABS: INTERNAL CONTROL VALID? YES
== END 2016-08-21 13:00 | disposition home or self-care (01) ==
LOC: EME 10:00 → EDOF 16:04 → 5EAST 16:04
PROVIDERS: Emergency Medicine; Hospitalist
DX: J44.0 Chronic obstructive pulmonary disease with (acute) lower respiratory infection (principal); J20.9 Acute bronchitis, unspecified; J44.1 Chronic obstructive pulmonary disease with (acute) exacerbation; N39.0 Urinary tract infection, site not specified; F31.9 Bipolar disorder, unspecified; J45.909 Unspecified asthma, uncomplicated; K21.9 Gastro-esophageal reflux disease without esophagitis; R10.31 Right lower quadrant pain; Z87.891 Personal history of nicotine dependence; G43.909 Migraine, unspecified, not intractable, without status migrainosus; E66.01 Morbid (severe) obesity due to excess calories; I10 Essential (primary) hypertension; F41.9 Anxiety disorder, unspecified; E87.2 Acidosis
CPT/HCPCS: 71010; 71275; 80048; 80053; 81003; 83605; 83690; 84484; 85025; 85610; 85730; 87040; 87077; 87086; 87186; 87449; 93005; 94640; 94640 76; 94799; 99202; 99281; 99285; G0378; J0456; J0696; J1650; J2270; J2920; J7030; J7050

== ENCOUNTER 2016-08-25 20:49 | Inpatient (IN) | payer OTHER ==
[~2016-08-25] VITALS: Ht 162.6 cm; Wt 170.0 kg
[~2016-08-25 20:49] MED LIST changes: +DELTASONE20 M1 PO; +TYLENOL W/COD1 COMBO PO
[2016-08-25 21:53] LABS: HEMATOCRIT 39.6 % (36.0-46.0); MCH 29.5 PG (29.0-34.0); MCHC 34.3 G/DL (30.0-36.0); MCV 85.9 FL (83-99); MEAN PLAT.VOLUME 9.3 uM^3 (9.5-12.4); PLATELET COUNT 257 K/uL (156-360); RBC DIS.WIDTH-CV 13.3 % (11.8-14.6); RBC DIS.WIDTH-SD 41.9 % (39-53); RED BLOOD COUNT 4.61 M/uL (3.80-5.20); WHITE BLOOD COUNT 10.4 K/uL (4.1-10.2)
[2016-08-25 21:57] LABS: CHLORIDE 104 mEq/L (99-109); POTASSIUM 3.6 mEq/L (3.7-5.4); SODIUM 140 mEq/L (136-147)
[2016-08-25 21:59] LABS: GLUCOSE 205 mg/dL (70-99)
[2016-08-25 22:00] LABS: ANION GAP 11 MEQ/L (2-14)
[2016-08-25 22:02] LABS: TOTAL BILIRUBIN 0.5 mg/dL (0.0-1.0)
[2016-08-25 22:03] LABS: ALKALINE PHOSPHATASE 51 IU/L (3-129); GFR ESTIMATE (CALCULATED) > 59 mL/min/
[2016-08-25 22:04] LABS: UREA NITROGEN (BUN) 18 mg/dL (9-23)
[2016-08-25 22:06] LABS: LIPASE 29 U/L (1.0-51.0); TROP-I INTERPRETATION NEGATIVE; TROPONIN-I < 0.01 ng/mL (0.0-0.30)
[2016-08-25 22:12] LABS: QUANTITATIVE HCG < 4.0 MIU/ML
[2016-08-25] MEDS ORDERED: VENTOLIN HFA18 GM IH (22:59)
[2016-08-25] MEDS ORDERED: LYRICA75 MG PO (23:01)
[2016-08-25] MEDS ORDERED: WELLBUTRIN XL300 MG PO (23:01)
[2016-08-25] MEDS ORDERED: GEODON40 MG PO (23:01)
[2016-08-26 01:43] VITALS: BP 138/64
[2016-08-26 05:55] VITALS: BP 115/56
[2016-08-26 07:22] VITALS: BP 126/70
[2016-08-26 08:32] LABS: METH RESISTANT S AUREUS PCR NEGATIVE (NEGATIVE); PROBE CHECK PASS; SPECIMEN PROCESSING CONTROL PASS
[2016-08-26 09:34] LABS: ANION GAP 10 MEQ/L (2-14); CHLORIDE 103 MEQ/L (99-109); GFR ESTIMATE (CALCULATED) > 59 mL/min/; GLUCOSE 248 mg/dL (70-99); MAGNESIUM 2.1 mg/dl (1.3-2.7); POTASSIUM 4.1 MEQ/L (3.7-5.4); SAMPLE HEMOLYSIS CHECK 0; SAMPLE ICTERIC CHECK 0; SAMPLE LIPEMIA CHECK 0; SODIUM 137 MEQ/L (136-147); UREA NITROGEN (BUN) 15 mg/dL (9-23)
[2016-08-26 10:26] LABS: TROP-I INTERPRETATION NEGATIVE; TROPONIN-I < 0.01 ng/mL (0.0-0.30)
[2016-08-26 11:57] VITALS: BP 135/76
[2016-08-26 15:17] VITALS: BP 123/62
[2016-08-26 19:56] LABS: TROP-I INTERPRETATION NEGATIVE; TROPONIN-I < 0.01 ng/mL (0.0-0.30)
[2016-08-26 20:00] VITALS: BP 136/73
[2016-08-27] VITALS (7 sets, daily range): BP systolic 120–170; BP diastolic 65–96
[2016-08-27 01:00] LABS: TROP-I INTERPRETATION NEGATIVE; TROPONIN-I < 0.01 ng/mL (0.0-0.30)
[2016-08-27 06:18] LABS: ANION GAP 8 MEQ/L (2-14); CHLORIDE 102 MEQ/L (99-109); GFR ESTIMATE (CALCULATED) > 59 mL/min/; GLUCOSE 307 mg/dL (70-99); POTASSIUM 4.8 MEQ/L (3.7-5.4); SAMPLE HEMOLYSIS CHECK 0; SAMPLE ICTERIC CHECK 0; SAMPLE LIPEMIA CHECK 0; SODIUM 137 MEQ/L (136-147)
[2016-08-27 06:39] LABS: UREA NITROGEN (BUN) 23 mg/dL (9-23)
[2016-08-27 06:41] LABS: HEMATOCRIT 40.2 % (36.0-46.0); MCH 28.8 PG (29.0-34.0); MCHC 33.3 G/DL (30.0-36.0); MCV 86.5 FL (83-99); MEAN PLAT.VOLUME 9.5 uM^3 (9.5-12.4); PLATELET COUNT 294 K/uL (156-360); RBC DIS.WIDTH-CV 13.2 % (11.8-14.6); RBC DIS.WIDTH-SD 41.1 % (39-53); RED BLOOD COUNT 4.65 M/uL (3.80-5.20); WHITE BLOOD COUNT 14.2 K/uL (4.1-10.2)
[2016-08-27 11:28] LABS: Estimated Average Glucose 137 mg/dL (70-123); HEMOGLOBIN A1c (GLYCOHEMOGLOB) 6.4 % HGB (Below 5.7)
[2016-08-27 23:18] LABS: ADD MIUA? YES; BILIRUBIN NEGATIVE; BLOOD NEGATIVE; COLOR STRAW ((YELLOW)); GLUCOSE (STRIP) >=500; KETONES NEGATIVE; LEUKOCYTES TRACE; NITRITE NEGATIVE; PROTEIN (STRIP) NEGATIVE; SPECIFIC GRAVITY 1.021 (1.000-1.030); UROBILINOGEN 0.2 MG/DL (0.2-1.0)
[2016-08-27 23:24] LABS: BACTERIA NONE SEEN /HPF; EPITHELIAL CELLS 1+ /HPF; MUCUS TRACE /LPF; RED BLOOD CELLS 0-5 /HPF (0-5); UCUL ADDED? NO
[2016-08-28 05:28] VITALS: BP 134/91
[2016-08-28 09:11] VITALS: BP 133/69
[2016-08-28] MEDS ORDERED: LOSARTAN-HCTZ1 EACH PO (09:41)
[2016-08-28] MEDS ORDERED: MONTELUKAST SOD10 MG PO (09:45)
[2016-08-28] MEDS ORDERED: MUCINEX600 MG PO (09:46)
[2016-08-28] MEDS ORDERED: CLONAZEPAM0.5 MG PO (09:47)
[2016-08-28] MEDS ORDERED: NICOTINE PATCH1 EAC2 TD (09:48)
[2016-08-28] MEDS ORDERED: OMNICEF300 MG PO (09:49)
[2016-08-28] MEDS ORDERED: GLUCOMETER MC (09:50)
[2016-08-28] MEDS ORDERED: TEST STRIPS MC (09:52)
[2016-08-28] MEDS ORDERED: LANCETS1 EACH MC (09:55)
[2016-08-28 10:33] LABS: HEMATOCRIT 43.1 % (36.0-46.0); MCH 29.3 PG (29.0-34.0); MCHC 34.1 G/DL (30.0-36.0); MEAN PLAT.VOLUME 9.7 uM^3 (9.5-12.4); PLATELET COUNT 309 K/uL (156-360); RBC DIS.WIDTH-CV 13.4 % (11.8-14.6); RBC DIS.WIDTH-SD 41.7 % (39-53); RED BLOOD COUNT 5.01 M/uL (3.80-5.20); WHITE BLOOD COUNT 12.3 K/uL (4.1-10.2)
[2016-08-28 11:00] LABS: ANION GAP 12 MEQ/L (2-14); CHLORIDE 98 MEQ/L (99-109); GFR ESTIMATE (CALCULATED) > 59 mL/min/; GLUCOSE 309 mg/dL (70-99); POTASSIUM 4.4 MEQ/L (3.7-5.4); SAMPLE HEMOLYSIS CHECK 0; SAMPLE ICTERIC CHECK 0; SAMPLE LIPEMIA CHECK 0; SODIUM 133 MEQ/L (136-147); UREA NITROGEN (BUN) 24 mg/dL (9-23)
[2016-08-28] MEDS ORDERED: METFORMIN HCL500 MG PO (12:05)
[2016-08-28] MEDS ORDERED: PREDNISONE10 MG PO (12:21)
[2016-08-28] MEDS ORDERED: ADVAIR HFA120 INHAL1 IH (12:26)
[2016-08-28] MEDS ORDERED: SYMBICORT60 INHALAT IH (13:44)
== END 2016-08-28 14:57 | disposition home or self-care (01) | DRG 191 ==
LOC: EME → EDBD 20:49 → EME 20:49 → 4EAST 23:18 → EDOF 23:18 → 4EAST 08-26 01:18
PROVIDERS: Emergency Medicine; Hospitalist; Internal Medicine; Physician Assistant
DX: J44.0 Chronic obstructive pulmonary disease with (acute) lower respiratory infection (principal); J20.9 Acute bronchitis, unspecified; J44.1 Chronic obstructive pulmonary disease with (acute) exacerbation; J45.901 Unspecified asthma with (acute) exacerbation; E11.9 Type 2 diabetes mellitus without complications; E87.6 Hypokalemia; I10 Essential (primary) hypertension; E66.01 Morbid (severe) obesity due to excess calories; Z68.44 Body mass index [BMI] 60.0-69.9, adult; F41.1 Generalized anxiety disorder; F31.9 Bipolar disorder, unspecified; F60.9 Personality disorder, unspecified; G43.909 Migraine, unspecified, not intractable, without status migrainosus; K21.9 Gastro-esophageal reflux disease without esophagitis; F17.200 Nicotine dependence, unspecified, uncomplicated; Z71.6 Tobacco abuse counseling; Z71.3 Dietary counseling and surveillance; Z87.01 Personal history of pneumonia (recurrent); Z87.440 Personal history of urinary (tract) infections
CPT/HCPCS: 71010; 80048; 80053; 81003; 83036; 83605; 83690; 83735; 84484; 84702; 85027; 87641; 93005; 94640; 94640 76; 94799; 99202; 99281; 99285; G0378; J1644; J1885; J2270; J2405; J2930; J7030; J7644

== ENCOUNTER 2016-08-30 12:57 | Emergency (ER) | payer OTHER ==
[~2016-08-30] VITALS: Ht 160 cm; Wt 163.0 kg
[~2016-08-30 12:57] MED LIST changes: +ADVAIR HFA120 INHAL1 IH; +GLUCOMETER MC; +LANCETS1 EACH MC; +LOSARTAN-HCTZ1 EACH PO; +METFORMIN HCL500 MG PO; +MONTELUKAST SOD10 MG PO; +MUCINEX600 MG PO; +OMNICEF300 MG PO; +TEST STRIPS MC
[2016-08-30 13:45] LABS: MCH 28.5 PG (29.0-34.0); MCHC 33.1 G/DL (30.0-36.0); MCV 86.2 FL (83-99); MEAN PLAT.VOLUME 9.3 uM^3 (9.5-12.4); PLATELET COUNT 318 K/uL (156-360); RBC DIS.WIDTH-CV 13.7 % (11.8-14.6); RBC DIS.WIDTH-SD 43.3 % (39-53); RED BLOOD COUNT 5.57 M/uL (3.80-5.20); WHITE BLOOD COUNT 17.5 K/uL (4.1-10.2)
[2016-08-30 13:56] LABS: CHLORIDE 98 mEq/L (99-109); POTASSIUM 4.9 mEq/L (3.7-5.4); SODIUM 131 mEq/L (136-147)
[2016-08-30 13:58] LABS: GLUCOSE 213 mg/dL (70-99)
[2016-08-30 13:59] LABS: ANION GAP 11 MEQ/L (2-14)
[2016-08-30 14:02] LABS: GFR ESTIMATE (CALCULATED) 50 mL/min/
[2016-08-30 14:03] LABS: UREA NITROGEN (BUN) 36 mg/dL (9-23)
[2016-08-30 14:06] LABS: TROP-I INTERPRETATION NEGATIVE; TROPONIN-I < 0.01 ng/mL (0.0-0.30)
[2016-08-30 14:29] LABS: QUANTITATIVE HCG < 4.0 MIU/ML
[2016-08-30 16:09] LABS: TROP-I INTERPRETATION NEGATIVE; TROPONIN-I < 0.01 ng/mL (0.0-0.30)
[2016-08-30] MEDS ORDERED: ROBITUSSIN AC,T10 ML PO (17:07)
[2016-08-30] MEDS ORDERED: TRAMADOL HCL50 MG PO (17:07)
[2016-08-30 18:07] VITALS: BP 113/78
[2016-08-31] MEDS ORDERED: PRINIVIL20 MG PO (19:39)
[2016-08-31] MEDS ORDERED: SEROQUEL300 MG PO (19:39)
[2016-08-31] MEDS ORDERED: CEFUROXIME500 MG PO (19:40)
[2016-08-31] MEDS ORDERED: TESSALON200 MG PO (19:40)
[2016-08-31] MEDS ORDERED: ZIPRASIDONE HCL40 MG PO (19:41)
[2016-08-31] MEDS ORDERED: BUPROPION XL300 MG PO (19:41)
[2016-08-31] MEDS ORDERED: SEROQUEL100 MG PO (19:41)
[2016-08-31] MEDS ORDERED: ACETAMINOPHEN-120 ML PO (19:42)
[2016-08-31] MEDS ORDERED: MOTRIN600 MG PO (19:43)
== END 2016-08-30 18:09 | disposition home or self-care (01) ==
LOC: EME 12:57
PROVIDERS: Emergency Medicine
DX: E86.0 Dehydration (principal); R07.9 Chest pain, unspecified; J44.1 Chronic obstructive pulmonary disease with (acute) exacerbation; I10 Essential (primary) hypertension; K21.9 Gastro-esophageal reflux disease without esophagitis; Z87.891 Personal history of nicotine dependence
CPT/HCPCS: 71020; 80048; 83605; 84484; 84702; 85027; 87040; 93005; 94640; 99281; 99285; J7030

== ENCOUNTER 2016-08-31 18:37 | Emergency (ER) | payer OTHER ==
[~2016-08-31] VITALS: Ht 165.1 cm; Wt 163.0 kg
[2016-08-31] MEDS ORDERED: PRINIVIL20 MG PO (19:39)
[2016-08-31] MEDS ORDERED: SEROQUEL300 MG PO (19:39)
[2016-08-31] MEDS ORDERED: CEFUROXIME500 MG PO (19:40)
[2016-08-31] MEDS ORDERED: TESSALON200 MG PO (19:40)
[2016-08-31] MEDS ORDERED: ZIPRASIDONE HCL40 MG PO (19:41)
[2016-08-31] MEDS ORDERED: SEROQUEL100 MG PO (19:41)
[2016-08-31] MEDS ORDERED: BUPROPION XL300 MG PO (19:41)
[2016-08-31] MEDS ORDERED: ACETAMINOPHEN-120 ML PO (19:42)
[2016-08-31] MEDS ORDERED: MOTRIN600 MG PO (19:43)
[2016-08-31 20:08] LABS: EOSINOPHIL (%) 0 % (0-5); HEMATOCRIT 43.4 % (36.0-46.0); IMMATURE GRANULOCYTE (%) 1.8 % (0.0-0.7); IMMATURE GRANULOCYTE COUNT 0.3 K/uL; INSTRUMENT ABS NEUTROPHIL CT 12.9 K/uL; LYMPHOCYTE COUNT 1.6 K/uL (1.0-2.8); MCH 29.1 PG (29.0-34.0); MCHC 33.9 G/DL (30.0-36.0); MCV 85.8 FL (83-99); MEAN PLAT.VOLUME 9.6 uM^3 (9.5-12.4); MONOCYTE (%) 5.2 % (3-12); MONOCYTE COUNT 0.8 K/uL (0-0.8); NEUTROPHIL (%) 82.8 % (45-76); NEUTROPHIL COUNT 12.9 K/uL (1.8-6.4); PLATELET COUNT 309 K/uL (156-360); RBC DIS.WIDTH-CV 13.6 % (11.8-14.6); RBC DIS.WIDTH-SD 42.5 % (39-53); RED BLOOD COUNT 5.06 M/uL (3.80-5.20); WHITE BLOOD COUNT 15.5 K/uL (4.1-10.2)
[2016-08-31 20:16] LABS: CHLORIDE 105 mEq/L (99-109); POTASSIUM 4.4 mEq/L (3.7-5.4); SODIUM 136 mEq/L (136-147)
[2016-08-31 20:18] LABS: GLUCOSE 159 mg/dL (70-99)
[2016-08-31 20:19] LABS: ANION GAP 12 MEQ/L (2-14)
[2016-08-31 20:22] LABS: GFR ESTIMATE (CALCULATED) 39 mL/min/
[2016-08-31 20:23] LABS: UREA NITROGEN (BUN) 45 mg/dL (9-23)
[2016-08-31 20:25] LABS: SALICYLATE < 5.0 MG/DL (15-30)
[2016-08-31 20:31] LABS: QUANTITATIVE HCG < 4.0 MIU/ML
[2016-09-01 00:11] VITALS: BP 125/84
[2016-09-02] MEDS ORDERED: VALIUM5 MG PO (19:57)
== END 2016-09-01 00:48 | disposition home or self-care (01) ==
LOC: EME 18:37
PROVIDERS: Emergency Medicine
DX: R45.1 Restlessness and agitation (principal); R45.851 Suicidal ideations; N17.9 Acute kidney failure, unspecified; E86.0 Dehydration; F33.1 Major depressive disorder, recurrent, moderate; Z91.5 Personal history of self-harm; I10 Essential (primary) hypertension; J44.9 Chronic obstructive pulmonary disease, unspecified; J45.909 Unspecified asthma, uncomplicated; Z87.891 Personal history of nicotine dependence
CPT/HCPCS: 80048; 84702; 85025; 90837; 99281; 99285; G0480; J1630; J2060; J3486; J7030

== ENCOUNTER 2016-09-02 16:47 | Emergency (ER) | payer OTHER ==
[~2016-09-02] VITALS: Ht 162.6 cm; Wt 164.7 kg
[~2016-09-02 16:47] MED LIST changes: +ACETAMINOPHEN-120 ML PO; +CEFUROXIME500 MG PO; +PRINIVIL20 MG PO; +TESSALON200 MG PO
[2016-09-02 18:08] LABS: CHLORIDE 102 mEq/L (99-109); POTASSIUM 3.5 mEq/L (3.7-5.4); SODIUM 139 mEq/L (136-147)
[2016-09-02 18:10] LABS: GLUCOSE 172 mg/dL (70-99)
[2016-09-02 18:11] LABS: ANION GAP 13 MEQ/L (2-14)
[2016-09-02 18:13] LABS: GFR ESTIMATE (CALCULATED) 29 mL/min/
[2016-09-02 18:14] LABS: UREA NITROGEN (BUN) 38 mg/dL (9-23)
[2016-09-02] MEDS ORDERED: VALIUM5 MG PO (19:57)
[2016-09-02 20:27] VITALS: BP 100/55
== END 2016-09-02 20:28 | disposition home or self-care (01) ==
LOC: EME 16:47 → RME 16:47
PROVIDERS: Physician Assistant
DX: R42 Dizziness and giddiness (principal); R06.00 Dyspnea, unspecified; J44.9 Chronic obstructive pulmonary disease, unspecified; J45.909 Unspecified asthma, uncomplicated; I10 Essential (primary) hypertension; Z87.891 Personal history of nicotine dependence
CPT/HCPCS: 80048; 93005; 99281; 99284

== ENCOUNTER 2016-09-22 21:55 | Observation (INO) | payer OTHER ==
[~2016-09-22] VITALS: Ht 162.6 cm; Wt 168.5 kg
[~2016-09-22 21:55] MED LIST changes: +VALIUM5 MG PO
[2016-09-22 22:35] LABS: HEMATOCRIT 39.8 % (36.0-46.0); MCH 29.5 PG (29.0-34.0); MCHC 33.7 G/DL (30.0-36.0); MCV 87.7 FL (83-99); MEAN PLAT.VOLUME 9.5 uM^3 (9.5-12.4); PLATELET COUNT 254 K/uL (156-360); RBC DIS.WIDTH-CV 14.6 % (11.8-14.6); RED BLOOD COUNT 4.54 M/uL (3.80-5.20); WHITE BLOOD COUNT 6.2 K/uL (4.1-10.2)
[2016-09-22 22:43] LABS: CHLORIDE 105 mEq/L (99-109); POTASSIUM 3.8 mEq/L (3.7-5.4); SODIUM 141 mEq/L (136-147)
[2016-09-22 22:44] LABS: GLUCOSE 93 mg/dL (70-99)
[2016-09-22 22:46] LABS: ANION GAP 10 MEQ/L (2-14)
[2016-09-22 22:48] LABS: GFR ESTIMATE (CALCULATED) 55 mL/min/
[2016-09-22 22:49] LABS: UREA NITROGEN (BUN) 13 mg/dL (9-23)
[2016-09-22 22:54] LABS: CARBON DIOXIDE (BICARBONATE) 29.1 MEQ/L (20-31)
[2016-09-22 23:02] LABS: QUANTITATIVE HCG < 4.0 MIU/ML
[2016-09-23 02:37] LABS: ADD MIUA? NO; BILIRUBIN NEGATIVE; BLOOD NEGATIVE; COLOR STRAW ((YELLOW)); GLUCOSE (STRIP) NEGATIVE; KETONES NEGATIVE; LEUKOCYTES NEGATIVE; NITRITE NEGATIVE; PROTEIN (STRIP) NEGATIVE; SPECIFIC GRAVITY 1.008 (1.000-1.030); UCUL ADDED? NO; UROBILINOGEN 0.2 MG/DL (0.2-1.0)
[2016-09-23 04:25] VITALS: BP 133/64
[2016-09-23 07:22] VITALS: BP 133/6
[2016-09-23 08:21] LABS: POINT-OF-CARE METER ID UU14162513
[2016-09-23 10:50] VITALS: BP 133/62
[2016-09-23 11:43] LABS: POINT-OF-CARE METER ID UU13113700
[2016-09-23 15:23] VITALS: BP 144/78
[2016-09-23] MEDS ORDERED: MOTRIN600 MG PO (15:26)
[2016-09-23] MEDS ORDERED: PREDNISONE10 MG PO (15:28)
[2016-09-23] MEDS ORDERED: ZESTORETIC 20-1 EAC1 PO (15:30)
[2016-09-23] MEDS ORDERED: MUCINEX600 MG PO (15:33)
== END 2016-09-23 17:56 | disposition home or self-care (01) ==
LOC: EME → EDBD 21:55 → EDOF 09-23 01:53 → 5WEST 09-23 03:59
PROVIDERS: Emergency Medicine; Internal Medicine
DX: J45.901 Unspecified asthma with (acute) exacerbation (principal); E66.01 Morbid (severe) obesity due to excess calories; Z68.44 Body mass index [BMI] 60.0-69.9, adult; E11.8 Type 2 diabetes mellitus with unspecified complications; Z87.891 Personal history of nicotine dependence; Z82.5 Family history of asthma and other chronic lower respiratory diseases
CPT/HCPCS: 71020; 80048; 81003; 82803; 82948; 84702; 85027; 93005; 94640; 94640 76; 99202; 99281; 99285; G0378; J1650; J1815; J2060; J2920; J2930; J3475; J7030; J7512; J7644

== ENCOUNTER 2016-09-25 12:44 | Emergency (ER) | payer OTHER ==
[~2016-09-25] VITALS: Ht 162.6 cm; Wt 164.6 kg
[2016-09-25 14:57] LABS: HEMATOCRIT 40.5 % (36.0-46.0); MCH 29.5 PG (29.0-34.0); MCHC 33.8 G/DL (30.0-36.0); MCV 87.3 FL (83-99); PLATELET COUNT 259 K/uL (156-360); RBC DIS.WIDTH-CV 14.9 % (11.8-14.6); RBC DIS.WIDTH-SD 47.6 % (39-53); RED BLOOD COUNT 4.64 M/uL (3.80-5.20); WHITE BLOOD COUNT 8.5 K/uL (4.1-10.2)
[2016-09-25 15:08] LABS: CHLORIDE 105 mEq/L (99-109); SODIUM 141 mEq/L (136-147)
[2016-09-25 15:11] LABS: ANION GAP 12 MEQ/L (2-14)
[2016-09-25 15:13] LABS: ALKALINE PHOSPHATASE 63 IU/L (3-129)
[2016-09-25 15:14] LABS: GFR ESTIMATE (CALCULATED) > 59 mL/min/; GLUCOSE 146 mg/dL (70-99)
[2016-09-25 15:20] LABS: TROP-I INTERPRETATION NEGATIVE; TROPONIN-I 0.01 ng/mL (0.0-0.30)
[2016-09-25 15:22] LABS: QUANTITATIVE HCG < 4.0 MIU/ML
[2016-09-25 15:25] LABS: UREA NITROGEN (BUN) 24 mg/dL (9-23)
[2016-09-25] MEDS ORDERED: ATROVENT 00.5 MG/2.5 IH (16:35)
[2016-09-25 16:43] VITALS: BP 147/97
== END 2016-09-25 16:45 | disposition home or self-care (01) ==
LOC: EME 12:44
PROVIDERS: Physician Assistant
DX: J45.901 Unspecified asthma with (acute) exacerbation (principal); E11.65 Type 2 diabetes mellitus with hyperglycemia; J44.9 Chronic obstructive pulmonary disease, unspecified; Z87.891 Personal history of nicotine dependence
CPT/HCPCS: 71020; 80053; 84484; 84702; 85027; 93005; 94640; 99281; 99285

== ENCOUNTER 2016-10-29 11:53 | Day surgery (SDC) | payer OTHER ==
[~2016-10-29] VITALS: Ht 162.6 cm; Wt 163.6 kg
[~2016-10-29 11:53] MED LIST changes: +ATROVENT 00.5 MG/2.5 IH
[2016-10-29 13:04] LABS: POINT-OF-CARE METER ID UU13113694
[2016-10-29] MEDS ORDERED: BUSPAR15 MG PO ×2 (19:25)
[2016-10-29] MEDS ORDERED: KLONOPIN0.5 M1 PO (19:26)
[2016-10-29] MEDS ORDERED: GLUCOPHAGE XR750 MG PO (19:28)
[2016-10-29] MEDS ORDERED: INDOCIN25 MG PO (19:29)
[2016-10-29] MEDS ORDERED: AMBIEN CR12.5 MG PO (19:29)
[2016-10-29] MEDS ORDERED: RELPAX40 MG PO (19:29)
[2016-10-29] MEDS ORDERED: LITHOBID300 MG PO ×2 (19:30)
[2016-10-29] MEDS ORDERED: TYLENOL WITH C1 EACH PO (19:30)
[2016-10-30] MEDS ORDERED: PREDNISONE10 MG PO (09:47)
== END 2016-10-29 15:00 | disposition hospice, inpatient (51) ==
LOC: PAIN 11:53 → SDC 13:15 → PAIN 13:15
PROVIDERS: Anesthesiology Pain Medicine
PROC: 3E0S33Z Introduction of Anti-inflammatory into Epidural Space, Percutaneous Approach (ICD-10-PCS; principal; 2016-10-29)
DX: M54.16 Radiculopathy, lumbar region (principal); M51.36 Other intervertebral disc degeneration, lumbar region; M51.26 Other intervertebral disc displacement, lumbar region; R06.02 Shortness of breath; Z87.891 Personal history of nicotine dependence; G89.29 Other chronic pain; J44.9 Chronic obstructive pulmonary disease, unspecified; F41.1 Generalized anxiety disorder; K21.9 Gastro-esophageal reflux disease without esophagitis; E66.01 Morbid (severe) obesity due to excess calories; Z68.44 Body mass index [BMI] 60.0-69.9, adult; F33.2 Major depressive disorder, recurrent severe without psychotic features; Z79.891 Long term (current) use of opiate analgesic
CPT/HCPCS: 82948; 93005; 94640; J1100; J2250; J3010

== ENCOUNTER 2016-10-29 17:09 | Observation (INO) | payer OTHER ==
[~2016-10-29] VITALS: Ht 162.6 cm; Wt 168.1 kg
[2016-10-29 18:33] LABS: BASOPHIL COUNT 0.1 K/uL (0-0.1); EOSINOPHIL (%) 0.4 % (0-5); HEMATOCRIT 41.9 % (36.0-46.0); IMMATURE GRANULOCYTE (%) 0.6 % (0.0-0.7); IMMATURE GRANULOCYTE COUNT 0.1 K/uL; INSTRUMENT ABS NEUTROPHIL CT 8.6 K/uL; LYMPHOCYTE COUNT 1.7 K/uL (1.0-2.8); MCH 29.4 PG (29.0-34.0); MCHC 34.6 G/DL (30.0-36.0); MCV 84.8 FL (83-99); MEAN PLAT.VOLUME 8.9 uM^3 (9.5-12.4); MONOCYTE (%) 2.3 % (3-12); MONOCYTE COUNT 0.3 K/uL (0-0.8); NEUTROPHIL (%) 79.9 % (45-76); NEUTROPHIL COUNT 8.6 K/uL (1.8-6.4); PLATELET COUNT 287 K/uL (156-360); RBC DIS.WIDTH-CV 13.4 % (11.8-14.6); RBC DIS.WIDTH-SD 41.6 % (39-53); RED BLOOD COUNT 4.94 M/uL (3.80-5.20); WHITE BLOOD COUNT 10.7 K/uL (4.1-10.2)
[2016-10-29 18:42] LABS: CHLORIDE 104 mEq/L (99-109); POTASSIUM 4.1 mEq/L (3.7-5.4); SODIUM 139 mEq/L (136-147)
[2016-10-29 18:44] LABS: GLUCOSE 147 mg/dL (70-99)
[2016-10-29 18:45] LABS: ANION GAP 14 MEQ/L (2-14)
[2016-10-29 18:48] LABS: GFR ESTIMATE (CALCULATED) > 59 mL/min/
[2016-10-29 18:49] LABS: UREA NITROGEN (BUN) 11 mg/dL (9-23)
[2016-10-29] MEDS ORDERED: BUSPAR15 MG PO ×2 (19:25)
[2016-10-29] MEDS ORDERED: KLONOPIN0.5 M1 PO (19:26)
[2016-10-29] MEDS ORDERED: GLUCOPHAGE XR750 MG PO (19:28)
[2016-10-29] MEDS ORDERED: INDOCIN25 MG PO (19:29)
[2016-10-29] MEDS ORDERED: AMBIEN CR12.5 MG PO (19:29)
[2016-10-29] MEDS ORDERED: RELPAX40 MG PO (19:29)
[2016-10-29] MEDS ORDERED: TYLENOL WITH C1 EACH PO (19:30)
[2016-10-29] MEDS ORDERED: LITHOBID300 MG PO ×2 (19:30)
[2016-10-29 21:11] VITALS: BP 137/94
[2016-10-30 01:00] VITALS: BP 131/72
[2016-10-30 04:15] VITALS: BP 140/82
[2016-10-30 05:31] LABS: HEMATOCRIT 38.9 % (36.0-46.0); MCH 30.3 PG (29.0-34.0); MCHC 35.5 G/DL (30.0-36.0); MCV 85.5 FL (83-99); MEAN PLAT.VOLUME 9.4 uM^3 (9.5-12.4); PLATELET COUNT 307 K/uL (156-360); RBC DIS.WIDTH-CV 13.5 % (11.8-14.6); RBC DIS.WIDTH-SD 42.5 % (39-53); RED BLOOD COUNT 4.55 M/uL (3.80-5.20); WHITE BLOOD COUNT 8.5 K/uL (4.1-10.2)
[2016-10-30 05:57] LABS: ANION GAP 11 MEQ/L (2-14); CHLORIDE 105 MEQ/L (99-109); GFR ESTIMATE (CALCULATED) > 59 mL/min/; GLUCOSE 210 mg/dL (70-99); SAMPLE HEMOLYSIS CHECK 0; SAMPLE ICTERIC CHECK 0; SAMPLE LIPEMIA CHECK 0; SODIUM 138 MEQ/L (136-147); UREA NITROGEN (BUN) 11 mg/dL (9-23)
[2016-10-30] MEDS ORDERED: PREDNISONE10 MG PO (09:47)
[2016-10-30 11:32] VITALS: BP 141/67
== END 2016-10-30 12:59 | disposition home or self-care (01) ==
LOC: EME 17:09 → EDOF 20:09 → 5WEST 20:09 → EDOF 20:09 → ENRESERV 20:23 → 5WEST 21:05
PROVIDERS: Emergency Medicine; Hospitalist
DX: J45.901 Unspecified asthma with (acute) exacerbation (principal); Z98.890 Other specified postprocedural states; I27.2 Other secondary pulmonary hypertension; E11.9 Type 2 diabetes mellitus without complications; E66.01 Morbid (severe) obesity due to excess calories; Z68.44 Body mass index [BMI] 60.0-69.9, adult; G43.909 Migraine, unspecified, not intractable, without status migrainosus; F31.9 Bipolar disorder, unspecified; I10 Essential (primary) hypertension; Z87.891 Personal history of nicotine dependence; Z88.5 Allergy status to narcotic agent
CPT/HCPCS: 71010; 80048; 85025; 85027; 94640; 94640 76; 94799; 99202; 99281; 99285; G0378; J1644; J1885; J2270; J2930

== ENCOUNTER 2016-11-15 17:57 | Inpatient (IN) | payer OTHER ==
[~2016-11-15] VITALS: Ht 162.6 cm; Wt 163.6 kg
[~2016-11-15 17:57] MED LIST changes: +AMBIEN CR12.5 MG PO; +GLUCOPHAGE XR,500 MG PO; +LITHOBID300 MG PO
[2016-11-15 18:38] LABS: HEMATOCRIT 38.2 % (36.0-46.0); MCH 29.9 PG (29.0-34.0); MCHC 33.5 G/DL (30.0-36.0); MCV 89.3 FL (83-99); MEAN PLAT.VOLUME 9.3 uM^3 (9.5-12.4); PLATELET COUNT 248 K/uL (156-360); RBC DIS.WIDTH-CV 14.5 % (11.8-14.6); RBC DIS.WIDTH-SD 46.2 % (39-53); RED BLOOD COUNT 4.28 M/uL (3.80-5.20); WHITE BLOOD COUNT 9.5 K/uL (4.1-10.2)
[2016-11-15 18:48] LABS: CHLORIDE 110 mEq/L (99-109); POTASSIUM 4.3 mEq/L (3.7-5.4); SODIUM 141 mEq/L (136-147)
[2016-11-15 18:50] LABS: GLUCOSE 147 mg/dL (70-99)
[2016-11-15 18:52] LABS: ANION GAP 8 MEQ/L (2-14)
[2016-11-15 18:54] LABS: GFR ESTIMATE (CALCULATED) > 59 mL/min/
[2016-11-15 18:55] LABS: UREA NITROGEN (BUN) 13 mg/dL (9-23)
[2016-11-15] MEDS ORDERED: IBUPROFEN800 MG PO (22:56)
[2016-11-15] MEDS ORDERED: GABAPENTIN400 MG PO (22:57)
[2016-11-15] MEDS ORDERED: INCRUSE ELLI62.5 MCG IH (22:59)
[2016-11-16 00:57] VITALS: BP 182/98
[2016-11-16 08:10] LABS: POINT-OF-CARE METER ID UU13113700
[2016-11-16 11:47] VITALS: BP 126/67
[2016-11-16 12:26] LABS: POINT-OF-CARE METER ID UU14162513
[2016-11-16 15:24] VITALS: BP 145/82
[2016-11-16 16:38] LABS: POINT-OF-CARE METER ID UU14162513
[2016-11-16 20:16] VITALS: BP 141/94
[2016-11-16 21:55] LABS: POINT-OF-CARE METER ID UU13113700
[2016-11-16 23:55] VITALS: BP 130/73
[2016-11-17 03:33] VITALS: BP 135/76
[2016-11-17 05:25] LABS: EOSINOPHIL (%) 0 % (0-5); HEMATOCRIT 38.6 % (36.0-46.0); IMMATURE GRANULOCYTE (%) 0.8 % (0.0-0.7); IMMATURE GRANULOCYTE COUNT 0.1 K/uL; INSTRUMENT ABS NEUTROPHIL CT 11.3 K/uL; LYMPHOCYTE COUNT 0.9 K/uL (1.0-2.8); MCH 29.9 PG (29.0-34.0); MCHC 32.6 G/DL (30.0-36.0); MCV 91.7 FL (83-99); MEAN PLAT.VOLUME 9.7 uM^3 (9.5-12.4); MONOCYTE (%) 4.5 % (3-12); MONOCYTE COUNT 0.6 K/uL (0-0.8); NEUTROPHIL COUNT 11.3 K/uL (1.8-6.4); PLATELET COUNT 245 K/uL (156-360); RBC DIS.WIDTH-CV 14.6 % (11.8-14.6); RBC DIS.WIDTH-SD 48.7 % (39-53); RED BLOOD COUNT 4.21 M/uL (3.80-5.20); WHITE BLOOD COUNT 12.8 K/uL (4.1-10.2)
[2016-11-17 08:24] LABS: POINT-OF-CARE METER ID UU13113700
[2016-11-17 08:25] VITALS: BP 142/80
[2016-11-17] MEDS ORDERED: AZITHROMYCIN500 M1 PO (11:57)
[2016-11-17] MEDS ORDERED: PREDNISONE10 MG PO (12:02)
[2016-11-17 12:17] LABS: POINT-OF-CARE METER ID UU13113700
== END 2016-11-17 13:38 | disposition home or self-care (01) | DRG 202 ==
LOC: EME 17:57 → EDOF 23:46 → ENRESERV 23:49 → 5WEST 11-16 00:46 → ENRESERV 11-16 14:25 → CANRESERV 11-16 14:36 → ENRESERV 11-16 14:36 → 5WEST 11-17 13:38
PROVIDERS: Hospitalist; Internal Medicine Pulmonary Disease
DX: J45.51 Severe persistent asthma with (acute) exacerbation (principal); J44.0 Chronic obstructive pulmonary disease with (acute) lower respiratory infection; J20.9 Acute bronchitis, unspecified; E11.9 Type 2 diabetes mellitus without complications; I27.2 Other secondary pulmonary hypertension; F31.9 Bipolar disorder, unspecified; G43.909 Migraine, unspecified, not intractable, without status migrainosus; G89.4 Chronic pain syndrome; I10 Essential (primary) hypertension; K21.9 Gastro-esophageal reflux disease without esophagitis; F41.9 Anxiety disorder, unspecified; G47.30 Sleep apnea, unspecified; M19.90 Unspecified osteoarthritis, unspecified site; E66.01 Morbid (severe) obesity due to excess calories; Z68.44 Body mass index [BMI] 60.0-69.9, adult; Z87.891 Personal history of nicotine dependence
CPT/HCPCS: 71020; 80048; 80178; 82948; 85025; 85027; 93971; 94640; 94640 76; 94799; 99202; 99281; 99285; G0378; J1200; J1644; J1815; J1885; J2930; J3475

== ENCOUNTER 2016-11-26 09:32 | Day surgery (SDC) | payer OTHER ==
[~2016-11-26] VITALS: Ht 162.6 cm; Wt 163.3 kg
[~2016-11-26 09:32] MED LIST changes: +GABAPENTIN400 MG PO; +INCRUSE ELLI62.5 MCG IH; +NEURONTIN300 MG PO
[2016-11-26 10:00] LABS: POINT-OF-CARE METER ID UU14174212
== END 2016-11-26 12:05 | disposition home or self-care (01) ==
LOC: PAIN 09:32 → SDC 10:00 → PAIN 12:05
PROVIDERS: Anesthesiology Pain Medicine
DX: M54.16 Radiculopathy, lumbar region (principal); M54.41 Lumbago with sciatica, right side; G89.29 Other chronic pain; F41.8 Other specified anxiety disorders; K21.9 Gastro-esophageal reflux disease without esophagitis; I10 Essential (primary) hypertension; E66.01 Morbid (severe) obesity due to excess calories; Z68.44 Body mass index [BMI] 60.0-69.9, adult; J44.9 Chronic obstructive pulmonary disease, unspecified; Z87.891 Personal history of nicotine dependence; E03.9 Hypothyroidism, unspecified
CPT/HCPCS: 82948; J1100; J2250; J3010

== ENCOUNTER 2017-02-20 09:55 | Inpatient (IN) | payer OTHER ==
[~2017-02-20] VITALS: Ht 162.6 cm; Wt 173.8 kg
[~2017-02-20 09:55] MED LIST changes: +CODEINE SULFATE15 MG PO; -GABAPENTIN400 MG PO; +PHENERGAN DM SYR1 ML PO
[2017-02-20 10:59] LABS: BASOPHIL COUNT 0.1 K/uL (0-0.1); EOSINOPHIL COUNT 0.2 K/uL (0-0.3); HEMATOCRIT 41.4 % (36.0-46.0); IMMATURE GRANULOCYTE (%) 0.6 % (0.0-0.7); INSTRUMENT ABS NEUTROPHIL CT 4.2 K/uL; LYMPHOCYTE COUNT 1.6 K/uL (1.0-2.8); MCH 29.4 PG (29.0-34.0); MCHC 34.1 G/DL (30.0-36.0); MCV 86.4 FL (83-99); MEAN PLAT.VOLUME 9.3 uM^3 (9.5-12.4); MONOCYTE (%) 7.8 % (3-12); MONOCYTE COUNT 0.5 K/uL (0-0.8); NEUTROPHIL (%) 63.4 % (45-76); NEUTROPHIL COUNT 4.2 K/uL (1.8-6.4); PLATELET COUNT 278 K/uL (156-360); RBC DIS.WIDTH-CV 13.2 % (11.8-14.6); RBC DIS.WIDTH-SD 40.9 % (39-53); RED BLOOD COUNT 4.79 M/uL (3.80-5.20); WHITE BLOOD COUNT 6.6 K/uL (4.1-10.2)
[2017-02-20 11:16] LABS: CHLORIDE 109 mEq/L (99-109); POTASSIUM 4.3 mEq/L (3.7-5.4); SODIUM 139 mEq/L (136-147)
[2017-02-20 11:18] LABS: GLUCOSE 129 mg/dL (70-99)
[2017-02-20 11:19] LABS: ANION GAP 7 MEQ/L (2-14)
[2017-02-20 11:20] LABS: TOTAL BILIRUBIN 0.5 mg/dL (0.0-1.0)
[2017-02-20 11:22] LABS: ALKALINE PHOSPHATASE 67 IU/L (3-129); GFR ESTIMATE (CALCULATED) > 59 mL/min/
[2017-02-20 11:23] LABS: UREA NITROGEN (BUN) 15 mg/dL (9-23)
[2017-02-20 11:31] LABS: QUANTITATIVE HCG < 4.0 MIU/ML
[2017-02-20 11:57] LABS: MAGNESIUM 2.4 mg/dL (1.3-2.7)
[2017-02-20] MEDS ORDERED: BUSPAR15 MG PO (12:25)
[2017-02-20] MEDS ORDERED: BELSOMRA20 MG PO (12:40)
[2017-02-20 15:19] VITALS: BP 164/103
[2017-02-20 19:42] VITALS: BP 160/88
[2017-02-20 21:09] LABS: POINT-OF-CARE METER ID UU13113717
[2017-02-20 23:43] VITALS: BP 172/65
[2017-02-21 03:49] VITALS: BP 169/100
[2017-02-21 07:43] VITALS: BP 158/98
[2017-02-21 10:54] VITALS: BP 150/80
[2017-02-21 12:00] LABS: MCH 28.6 PG (29.0-34.0); MCHC 32.9 G/DL (30.0-36.0); MCV 86.9 FL (83-99); MEAN PLAT.VOLUME 9.4 uM^3 (9.5-12.4); PLATELET COUNT 337 K/uL (156-360); RBC DIS.WIDTH-CV 13.4 % (11.8-14.6); RBC DIS.WIDTH-SD 42.8 % (39-53); RED BLOOD COUNT 5.18 M/uL (3.80-5.20); WHITE BLOOD COUNT 14.2 K/uL (4.1-10.2)
[2017-02-21 12:12] LABS: POINT-OF-CARE METER ID UU14174225
[2017-02-21 16:21] VITALS: BP 189/102
[2017-02-21 17:16] LABS: POINT-OF-CARE METER ID UU13113717
[2017-02-21 19:58] VITALS: BP 162/92
[2017-02-21 20:40] LABS: POINT-OF-CARE METER ID UU13113717
[2017-02-22 00:10] VITALS: BP 136/87
[2017-02-22 04:28] VITALS: BP 161/99
[2017-02-22 07:29] VITALS: BP 186/103
[2017-02-22 08:04] LABS: POINT-OF-CARE METER ID UU13113717
[2017-02-22] MEDS ORDERED: DICYCLOMINE HCL10 MG PO (08:35)
[2017-02-22] MEDS ORDERED: SPIRIVA RESPIMAT4 GM IH (08:35)
[2017-02-22] MEDS ORDERED: PREDNISONE10 MG PO (08:35)
[2017-02-22] MEDS ORDERED: ADVAIR HFA120 INHAL1 IH (08:35)
[2017-02-22] MEDS ORDERED: OSELTAMIVIR PHO75 MG PO (08:37)
[2017-02-22] MEDS ORDERED: AMLODIPINE BESY10 MG PO (08:37)
[2017-02-22] MEDS ORDERED: CODEINE SULFATE15 MG PO (09:13)
[2017-02-22 11:50] VITALS: BP 183/106
[2017-02-22 11:56] LABS: POINT-OF-CARE METER ID UU13113717
== END 2017-02-22 15:04 | disposition home health service (06) | DRG 194 ==
LOC: EME 09:55 → 5SOUTH 12:23 → EDOF 12:23 → ENRESERV 12:25 → 5SOUTH 14:43
PROVIDERS: Emergency Medicine; Hospitalist; Physician Assistant Medical
DX: J10.1 Influenza due to other identified influenza virus with other respiratory manifestations (principal); J44.1 Chronic obstructive pulmonary disease with (acute) exacerbation; J44.0 Chronic obstructive pulmonary disease with (acute) lower respiratory infection; J20.9 Acute bronchitis, unspecified; J45.901 Unspecified asthma with (acute) exacerbation; R10.11 Right upper quadrant pain; K76.0 Fatty (change of) liver, not elsewhere classified; E11.9 Type 2 diabetes mellitus without complications; E66.01 Morbid (severe) obesity due to excess calories; G47.33 Obstructive sleep apnea (adult) (pediatric); F31.9 Bipolar disorder, unspecified; F41.9 Anxiety disorder, unspecified; I10 Essential (primary) hypertension; K21.9 Gastro-esophageal reflux disease without esophagitis; G43.909 Migraine, unspecified, not intractable, without status migrainosus; Z91.19 Patient's noncompliance with other medical treatment and regimen; Z87.891 Personal history of nicotine dependence; Z88.5 Allergy status to narcotic agent; Z79.84 Long term (current) use of oral hypoglycemic drugs
CPT/HCPCS: 71010; 76705; 80053; 82948; 83605; 83735; 83880; 84702; 85025; 85027; 85048; 87502; 93005; 94640; 94640 76; 94644; 94760; 99202; 99281; 99285; J1650; J1815; J2930; J3475

== ENCOUNTER 2017-05-18 22:00 | Inpatient (IN) | payer OTHER ==
[~2017-05-18] VITALS: Ht 162.6 cm; Wt 183.3 kg
[~2017-05-18 22:00] MED LIST changes: +AMLODIPINE BESY10 MG PO; +BELSOMRA20 MG PO; +DICYCLOMINE HCL10 MG PO; +OSELTAMIVIR PHO75 MG PO; +SPIRIVA RESPIMAT4 GM IH
[2017-05-18 23:15] LABS: BASOPHIL (%) 1.2 % (0-1); BASOPHIL COUNT 0.1 K/uL (0-0.1); EOSINOPHIL (%) 1.2 % (0-5); EOSINOPHIL COUNT 0.1 K/uL (0-0.3); HEMATOCRIT 43.7 % (36.0-46.0); HEMOGLOBIN 14.6 G/DL (11.9-15.5); IMMATURE GRANULOCYTE (%) 0.7 % (0.0-0.7); LYMPHOCYTE (%) 32.8 % (15-42); LYMPHOCYTE COUNT 1.3 K/uL (1.0-2.8); MCH 29.8 PG (29.0-34.0); MCHC 33.4 G/DL (30.0-36.0); MCV 89.2 FL (83-99); MONOCYTE (%) 16.4 % (3-12); MONOCYTE COUNT 0.7 K/uL (0-0.8); NEUTROPHIL (%) 47.7 % (45-76); NEUTROPHIL COUNT 1.9 K/uL (1.8-6.4); RBC DIS.WIDTH-CV 12.6 % (11.8-14.6); RBC DIS.WIDTH-SD 41.4 % (39-53)
[2017-05-18 23:26] LABS: ALBUMIN 3.9 g/dL (3.2-4.8); CHLORIDE 102 mEq/L (99-109); POTASSIUM 3.4 mEq/L (3.7-5.4); SODIUM 139 mEq/L (136-147)
[2017-05-18 23:28] LABS: GLUCOSE 157 mg/dL (70-99)
[2017-05-18 23:30] LABS: TOTAL BILIRUBIN 0.5 mg/dL (0.0-1.0)
[2017-05-18 23:32] LABS: ALKALINE PHOSPHATASE 85 IU/L (3-129); CREATININE 0.8 mg/dL (0.6-1.3); GFR ESTIMATE (CALCULATED) > 59 mL/min/
[2017-05-18 23:33] LABS: UREA NITROGEN (BUN) 5 mg/dL (9-23)
[2017-05-18 23:34] LABS: AST (GOT) 40 IU/L (2-34)
[2017-05-18 23:35] LABS: ALT (GPT) 66 IU/L (3-49)
[2017-05-18 23:39] LABS: TROP-I INTERPRETATION NEGATIVE; TROPONIN-I < 0.01 ng/mL (0.0-0.30)
[2017-05-18 23:41] LABS: QUANTITATIVE HCG < 4.0 MIU/ML
[2017-05-18 23:55] LABS: PLAT.SUFFICIENCY DECREASED; PLATELET COUNT 90 K/uL (156-360)
[2017-05-19] MEDS ORDERED: LYRICA75 MG PO (00:04)
[2017-05-19] MEDS ORDERED: NEURONTIN300 MG PO (00:04)
[2017-05-19] MEDS ORDERED: AMLODIPINE BESYL5 MG PO (00:04)
[2017-05-19] MEDS ORDERED: ADVAIR 250/501 DISK IH (00:05)
[2017-05-19] MEDS ORDERED: INDOCIN25 MG PO (00:06)
[2017-05-19] MEDS ORDERED: MINIPRESS1 MG PO (00:06)
[2017-05-19 01:39] LABS: BASE EXCESS 4.4 mEq/L (-3 to +3); BICARBONATE 30.8 mEq/L (22-26); COMMENTS - BLOOD GASES A+C+; DEVICE NC; O2 FLOW 4 L/MIN; PCO2 52 mm Hg (35-45); PO2 66 mm Hg (80-100); SITE RR; TOTAL RESP RATE 20 resp/min; pH 7.38 (7.35-7.45)
[2017-05-19 02:04] LABS: INTER. NORMALIZED RATIO 1.2
[2017-05-19 02:07] LABS: PTT 28.8 SEC (25-37)
[2017-05-19 04:22] VITALS: BP 138/79
[2017-05-19 04:40] LABS: BASOPHIL COUNT 0.1 K/uL (0-0.1); EOSINOPHIL (%) 0 % (0-5); HEMATOCRIT 42.2 % (36.0-46.0); HEMOGLOBIN 14.3 G/DL (11.9-15.5); IMMATURE GRANULOCYTE (%) 0.4 % (0.0-0.7); LYMPHOCYTE (%) 7.5 % (15-42); LYMPHOCYTE COUNT 0.4 K/uL (1.0-2.8); MCH 30.1 PG (29.0-34.0); MCHC 33.9 G/DL (30.0-36.0); MCV 88.8 FL (83-99); MONOCYTE (%) 4.3 % (3-12); MONOCYTE COUNT 0.2 K/uL (0-0.8); NEUTROPHIL (%) 86.8 % (45-76); NEUTROPHIL COUNT 4.4 K/uL (1.8-6.4); RBC DIS.WIDTH-CV 12.9 % (11.8-14.6); RBC DIS.WIDTH-SD 42.1 % (39-53); RED BLOOD COUNT 4.75 M/uL (3.80-5.20); WHITE BLOOD COUNT 5.1 K/uL (4.1-10.2)
[2017-05-19 05:30] LABS: PLATELET COUNT 199 K/uL (156-360)
[2017-05-19 08:31] VITALS: BP 145/80
[2017-05-19 10:12] LABS: HEMOGLOBIN A1c (GLYCOHEMOGLOB) 6.5 % (Below 5.7)
[2017-05-19 11:49] VITALS: BP 128/56
[2017-05-19 15:37] VITALS: BP 131/72
[2017-05-19 19:29] VITALS: BP 141/67
[2017-05-20 01:43] VITALS: BP 132/74
[2017-05-20 07:11] VITALS: BP 133/72
[2017-05-20 07:39] LABS: BASOPHIL (%) 0.1 % (0-1); EOSINOPHIL (%) 0.1 % (0-5); HEMATOCRIT 43.1 % (36.0-46.0); HEMOGLOBIN 14.6 G/DL (11.9-15.5); IMMATURE GRANULOCYTE (%) 0.4 % (0.0-0.7); LYMPHOCYTE COUNT 0.9 K/uL (1.0-2.8); MCH 29.7 PG (29.0-34.0); MCHC 33.9 G/DL (30.0-36.0); MCV 87.8 FL (83-99); MONOCYTE (%) 8.6 % (3-12); MONOCYTE COUNT 0.6 K/uL (0-0.8); NEUTROPHIL (%) 77.8 % (45-76); NEUTROPHIL COUNT 5.5 K/uL (1.8-6.4); PLATELET COUNT 240 K/uL (156-360); RBC DIS.WIDTH-CV 12.6 % (11.8-14.6); RBC DIS.WIDTH-SD 39.9 % (39-53); RED BLOOD COUNT 4.91 M/uL (3.80-5.20); WHITE BLOOD COUNT 7.1 K/uL (4.1-10.2)
[2017-05-20 08:05] LABS: ALBUMIN 3.6 G/DL (3.2-4.8); ALKALINE PHOSPHATASE 64 IU/L (3-129); ALT (GPT) 45 IU/L (3-49); AST (GOT) 21 IU/L (2-34); CHLORIDE 97 MEQ/L (99-109); CREATININE 0.7 MG/DL (0.6-1.3); GFR ESTIMATE (CALCULATED) > 59 mL/min/; GLUCOSE 231 mg/dL (70-99); SODIUM 137 MEQ/L (136-147); TOTAL BILIRUBIN 0.5 MG/DL (0.0-1.0); TOTAL PROTEIN 5.8 G/DL (6.4-8.3); UREA NITROGEN (BUN) 13 mg/dL (9-23)
[2017-05-20 08:08] LABS: POTASSIUM 4.2 MEQ/L (3.7-5.4)
[2017-05-20 08:34] VITALS: BP 138/72
[2017-05-20 11:33] VITALS: BP 136/70
[2017-05-20 16:30] VITALS: BP 128/78
[2017-05-20 20:19] VITALS: BP 120/82
[2017-05-21 00:28] VITALS: BP 138/60
[2017-05-21 03:37] VITALS: BP 136/63
[2017-05-21 08:41] VITALS: BP 136/86
[2017-05-21] MEDS ORDERED: OSELTAMIVIR PHO75 MG PO (11:23)
[2017-05-21] MEDS ORDERED: MUCINEX600 MG PO (11:25)
[2017-05-21] MEDS ORDERED: PREDNISONE10 MG PO (11:26)
[2017-05-21] MEDS ORDERED: ROBITUSSIN DM118 ML PO (11:26)
[2017-05-21 11:40] VITALS: BP 137/90
== END 2017-05-21 13:00 | disposition home or self-care (01) | DRG 871 ==
LOC: EME → EDBD 22:00 → EDOF 05-19 01:31 → 3EAST 05-19 01:31 → ENRESERV 05-19 01:35 → EDOF 05-19 02:07 → ENRESERV 05-19 02:08 → 3EAST 05-19 03:52
PROVIDERS: Emergency Medicine; Hospitalist; Internal Medicine; Physician Assistant Medical
DX: A41.89 Other specified sepsis (principal); J96.01 Acute respiratory failure with hypoxia; J96.02 Acute respiratory failure with hypercapnia; E66.2 Morbid (severe) obesity with alveolar hypoventilation; J47.0 Bronchiectasis with acute lower respiratory infection; F33.9 Major depressive disorder, recurrent, unspecified; Z68.44 Body mass index [BMI] 60.0-69.9, adult; J45.52 Severe persistent asthma with status asthmaticus; J45.51 Severe persistent asthma with (acute) exacerbation; R65.20 Severe sepsis without septic shock; J10.1 Influenza due to other identified influenza virus with other respiratory manifestations; B97.89 Other viral agents as the cause of diseases classified elsewhere; J20.9 Acute bronchitis, unspecified; K21.9 Gastro-esophageal reflux disease without esophagitis; E03.9 Hypothyroidism, unspecified; E11.65 Type 2 diabetes mellitus with hyperglycemia; E87.6 Hypokalemia; F17.210 Nicotine dependence, cigarettes, uncomplicated; Z91.19 Patient's noncompliance with other medical treatment and regimen; Z90.710 Acquired absence of both cervix and uterus; Z91.5 Personal history of self-harm; K76.0 Fatty (change of) liver, not elsewhere classified; I27.21 Secondary pulmonary arterial hypertension; G43.909 Migraine, unspecified, not intractable, without status migrainosus; F41.9 Anxiety disorder, unspecified; G89.29 Other chronic pain; D69.6 Thrombocytopenia, unspecified; Z60.2 Problems related to living alone; Z79.84 Long term (current) use of oral hypoglycemic drugs; J98.4 Other disorders of lung; I36.1 Nonrheumatic tricuspid (valve) insufficiency; Z79.51 Long term (current) use of inhaled steroids
CPT/HCPCS: 36600; 71046; 71250; 80053; 80178; 82803; 82948; 83036; 83605; 83735; 84484; 84702; 85025; 85610; 85652; 85730; 87040; 87502; 93005; 94010; 94640; 94640 76; 94644; 94799; 99202; 99281; 99285; J1170; J1650; J1815; J2543; J2920; J2930; J3105; J3475; J7512; J7644

== ENCOUNTER 2017-07-15 19:11 | Observation (INO) | payer OTHER ==
[~2017-07-15] VITALS: Ht 162.6 cm; Wt 178.7 kg
[~2017-07-15 19:11] MED LIST changes: +AMLODIPINE BESYL5 MG PO; +MINIPRESS1 MG PO; +ROBITUSSIN DM118 ML PO
[2017-07-15 19:46] LABS: HEMATOCRIT 46.4 % (36.0-46.0); HEMOGLOBIN 16.3 G/DL (11.9-15.5); MCHC 35.1 G/DL (30.0-36.0); MCV 85.5 FL (83-99); PLATELET COUNT 284 K/uL (156-360); RBC DIS.WIDTH-CV 13.5 % (11.8-14.6); RBC DIS.WIDTH-SD 41.4 % (39-53); RED BLOOD COUNT 5.43 M/uL (3.80-5.20); WHITE BLOOD COUNT 8.7 K/uL (4.1-10.2)
[2017-07-15 19:58] LABS: CHLORIDE 104 mEq/L (99-109); POTASSIUM 3.6 mEq/L (3.7-5.4); SODIUM 142 mEq/L (136-147)
[2017-07-15 20:00] LABS: GLUCOSE 116 mg/dL (70-99)
[2017-07-15 20:04] LABS: CREATININE 0.8 mg/dL (0.6-1.3); GFR ESTIMATE (CALCULATED) > 59 mL/min/; UREA NITROGEN (BUN) 10 mg/dL (9-23)
[2017-07-15 20:07] LABS: TROP-I INTERPRETATION NEGATIVE; TROPONIN-I < 0.01 ng/mL (0.0-0.30)
[2017-07-15 21:47] LABS: CARBON DIOXIDE (BICARBONATE) 29.6 MEQ/L (20-31)
[2017-07-16] MEDS ORDERED: INDOMETHACIN25 MG PO (01:57)
[2017-07-16] MEDS ORDERED: TRAMADOL HCL50 MG PO (01:58)
[2017-07-16 02:15] VITALS: BP 170/94
[2017-07-16 07:15] VITALS: BP 180/90
[2017-07-16 07:21] LABS: CHLORIDE 103 MEQ/L (99-109); CREATININE 0.8 MG/DL (0.6-1.3); GFR ESTIMATE (CALCULATED) > 59 mL/min/; SODIUM 139 MEQ/L (136-147); UREA NITROGEN (BUN) 10 mg/dL (9-23)
[2017-07-16 07:31] LABS: GLUCOSE 237 mg/dL (70-99)
[2017-07-16 11:12] LABS: APPEARANCE CLOUDY ((CLEAR)); BILIRUBIN NEGATIVE; BLOOD NEGATIVE; COLOR YELLOW ((YELLOW)); GLUCOSE (STRIP) >=500; KETONES 5; LEUKOCYTES TRACE; NITRITE NEGATIVE; PROTEIN (STRIP) 100; SPECIFIC GRAVITY 1.018 (1.000-1.030)
[2017-07-16 11:21] LABS: BACTERIA RARE /HPF; EPITHELIAL CELLS 2+ /HPF; MUCUS TRACE /LPF; RED BLOOD CELLS 0-5 /HPF (0-5); UCUL ADDED? YES
[2017-07-16 12:32] VITALS: BP 130/90
[2017-07-16 16:54] VITALS: BP 148/77
[2017-07-16 19:45] VITALS: BP 132/78
[2017-07-16 22:35] VITALS: BP 142/81
[2017-07-17 03:45] VITALS: BP 158/82
[2017-07-17 07:38] VITALS: BP 168/90
[2017-07-17] MEDS ORDERED: AZITHROMYCIN500 M1 PO (09:38)
[2017-07-17] MEDS ORDERED: PREDNISONE10 MG PO (09:38)
[2017-07-17 10:28] LABS: HEMOGLOBIN A1c (GLYCOHEMOGLOB) 6.5 % (Below 5.7)
== END 2017-07-17 10:27 | disposition home or self-care (01) ==
LOC: EME 19:11 → EDOF 07-16 00:56 → 2EAST 07-16 00:56 → EDOF 07-16 00:56 → ENRESERV 07-16 00:57 → 2EAST 07-16 02:06
PROVIDERS: Emergency Medicine; Hospitalist; Internal Medicine
DX: J45.41 Moderate persistent asthma with (acute) exacerbation (principal); J20.9 Acute bronchitis, unspecified; R07.81 Pleurodynia; R09.02 Hypoxemia; E66.01 Morbid (severe) obesity due to excess calories; I10 Essential (primary) hypertension; F31.9 Bipolar disorder, unspecified; G43.809 Other migraine, not intractable, without status migrainosus; G89.4 Chronic pain syndrome; I27.20 Pulmonary hypertension, unspecified; K76.0 Fatty (change of) liver, not elsewhere classified; E11.9 Type 2 diabetes mellitus without complications; Z90.710 Acquired absence of both cervix and uterus; Z87.891 Personal history of nicotine dependence; R91.1 Solitary pulmonary nodule; Z86.19 Personal history of other infectious and parasitic diseases; Z88.5 Allergy status to narcotic agent
CPT/HCPCS: 36600; 71046; 80048; 81003; 82803; 83036; 84145 90; 84443; 84484; 85027; 87086; 93005; 94640; 94640 76; 94644; 94799; 99202; 99281; 99285; G0378; J0456; J1650; J2930; J3475; J7030

== ENCOUNTER 2017-07-28 13:06 | Inpatient (IN) | payer OTHER ==
[2017-07-28] VITALS (7 sets, daily range): BP systolic 138–192; BP diastolic 83–113
[~2017-07-28] VITALS: Ht 152.4 cm; Wt 102.0 kg
[2017-07-28 14:32] LABS: HEMATOCRIT 42.7 % (36.0-46.0); HEMOGLOBIN 14.5 G/DL (11.9-15.5); MCH 30.1 PG (29.0-34.0); MCV 88.6 FL (83-99); PLATELET COUNT 258 K/uL (156-360); RBC DIS.WIDTH-CV 13.2 % (11.8-14.6); RBC DIS.WIDTH-SD 42.7 % (39-53); RED BLOOD COUNT 4.82 M/uL (3.80-5.20); WHITE BLOOD COUNT 9.7 K/uL (4.1-10.2)
[2017-07-28 14:45] LABS: CHLORIDE 103 mEq/L (99-109); POTASSIUM 4.5 mEq/L (3.7-5.4); SODIUM 142 mEq/L (136-147)
[2017-07-28 14:46] LABS: GLUCOSE 154 mg/dL (70-99)
[2017-07-28 14:50] LABS: CREATININE 0.9 mg/dL (0.6-1.3); GFR ESTIMATE (CALCULATED) > 59 mL/min/
[2017-07-28 14:51] LABS: UREA NITROGEN (BUN) 6 mg/dL (9-23)
[2017-07-28 23:09] LABS: D-DIMER ELISA < 150.00 ng/mLDDU (<230)
[2017-07-28 23:10] LABS: ALBUMIN 4.2 g/dL (3.2-4.8)
[2017-07-28 23:13] LABS: TOTAL PROTEIN 6.6 g/dL (6.4-8.3)
[2017-07-28 23:15] LABS: TOTAL BILIRUBIN 0.8 mg/dL (0.0-1.0)
[2017-07-28 23:16] LABS: ALKALINE PHOSPHATASE 82 IU/L (3-129)
[2017-07-28 23:18] LABS: AST (GOT) 35 IU/L (2-34); DIRECT BILIRUBIN 0.3 mg/dL (0.0-0.3)
[2017-07-28 23:19] LABS: ALT (GPT) 82 IU/L (3-49); LIPASE 4 U/L (1.0-51.0)
[2017-07-28 23:27] LABS: TROP-I INTERPRETATION NEGATIVE; TROPONIN-I < 0.01 ng/mL (0.0-0.30)
[2017-07-29 01:56] VITALS: BP 138/86
[2017-07-29 02:10] LABS: BENZODIAZEPINES, URINE SCREEN Negative (200 ng/mL)
[2017-07-29 04:06] LABS: APPEARANCE SL.HAZY ((CLEAR)); BILIRUBIN NEGATIVE; BLOOD NEGATIVE; COLOR YELLOW ((YELLOW)); GLUCOSE (STRIP) NEGATIVE; KETONES NEGATIVE; LEUKOCYTES TRACE; NITRITE NEGATIVE; PROTEIN (STRIP) 30; SPECIFIC GRAVITY 1.017 (1.000-1.030); UROBILINOGEN 0.2 MG/DL (0.2-1.0)
[2017-07-29 04:17] LABS: BACTERIA NONE SEEN /HPF; EPITHELIAL CELLS RARE /HPF; MUCUS TRACE /LPF; UCUL ADDED? YES
[2017-07-29 06:08] LABS: TROP-I INTERPRETATION NEGATIVE; TROPONIN-I < 0.01 ng/mL (0.0-0.30)
[2017-07-29 06:09] LABS: ALBUMIN 4.2 G/DL (3.2-4.8); ALKALINE PHOSPHATASE 75 IU/L (3-129); ALT (GPT) 68 IU/L (3-49); AST (GOT) 37 IU/L (2-34); CHLORIDE 100 MEQ/L (99-109); CREATININE 0.9 MG/DL (0.6-1.3); GFR ESTIMATE (CALCULATED) > 59 mL/min/; POTASSIUM 4.6 MEQ/L (3.7-5.4); SODIUM 137 MEQ/L (136-147); TOTAL BILIRUBIN 0.8 MG/DL (0.0-1.0); TOTAL PROTEIN 6.3 G/DL (6.4-8.3); UREA NITROGEN (BUN) 8 mg/dL (9-23)
[2017-07-29 06:11] LABS: GLUCOSE 272 mg/dL (70-99)
[2017-07-29 07:07] LABS: BASOPHIL (%) 0.3 % (0-1); EOSINOPHIL (%) 0.1 % (0-5); HEMATOCRIT 43.7 % (36.0-46.0); HEMOGLOBIN 14.5 G/DL (11.9-15.5); IMMATURE GRANULOCYTE (%) 1.6 % (0.0-0.7); LYMPHOCYTE (%) 6.4 % (15-42); LYMPHOCYTE COUNT 0.9 K/uL (1.0-2.8); MCH 29.4 PG (29.0-34.0); MCHC 33.2 G/DL (30.0-36.0); MCV 88.5 FL (83-99); MONOCYTE (%) 1.4 % (3-12); MONOCYTE COUNT 0.2 K/uL (0-0.8); NEUTROPHIL (%) 90.2 % (45-76); PLATELET COUNT 275 K/uL (156-360); RBC DIS.WIDTH-CV 13.3 % (11.8-14.6); RBC DIS.WIDTH-SD 42.7 % (39-53); RED BLOOD COUNT 4.94 M/uL (3.80-5.20); WHITE BLOOD COUNT 13.2 K/uL (4.1-10.2)
[2017-07-29 07:19] VITALS: BP 145/93
[2017-07-29 10:38] LABS: TROP-I INTERPRETATION NEGATIVE; TROPONIN-I < 0.01 ng/mL (0.0-0.30)
[2017-07-29 11:33] VITALS: BP 139/81
[2017-07-29 19:50] VITALS: BP 164/93
[2017-07-30] VITALS (7 sets, daily range): BP systolic 135–167; BP diastolic 72–103
[2017-07-30 05:58] LABS: HEMATOCRIT 43.6 % (36.0-46.0); HEMOGLOBIN 14.2 G/DL (11.9-15.5); MCH 29.3 PG (29.0-34.0); MCHC 32.6 G/DL (30.0-36.0); MCV 89.9 FL (83-99); PLATELET COUNT 269 K/uL (156-360); RBC DIS.WIDTH-CV 13.4 % (11.8-14.6); RBC DIS.WIDTH-SD 43.8 % (39-53); RED BLOOD COUNT 4.85 M/uL (3.80-5.20); WHITE BLOOD COUNT 17.7 K/uL (4.1-10.2)
[2017-07-30 06:22] LABS: CHLORIDE 98 MEQ/L (99-109); CREATININE 0.9 MG/DL (0.6-1.3); GFR ESTIMATE (CALCULATED) > 59 mL/min/; GLUCOSE 304 mg/dL (70-99); POTASSIUM 4.6 MEQ/L (3.7-5.4); SODIUM 138 MEQ/L (136-147); UREA NITROGEN (BUN) 17 mg/dL (9-23)
[2017-07-30 10:41] LABS: BASE EXCESS 5.4 mEq/L (-3 to +3); BICARBONATE 32.8 mEq/L (22-26); CARBOXY HGB 2.4 % (0-5); METHEMOGLOBIN 1.6 % (0-1.5); PO2 87 mm Hg (80-100); pH 7.36 (7.35-7.45)
[2017-07-30 10:42] LABS: PCO2 58 mm Hg (35-45); SITE LR
[2017-07-30 10:43] LABS: COMMENTS - BLOOD GASES A+C+; DEVICE NCH; O2 FLOW 10 L/MIN; TOTAL RESP RATE 12 resp/min
[2017-07-31] VITALS (7 sets, daily range): BP systolic 116–168; BP diastolic 62–102
[2017-07-31 05:05] LABS: HEMATOCRIT 41.8 % (36.0-46.0); HEMOGLOBIN 13.8 G/DL (11.9-15.5); MCH 29.9 PG (29.0-34.0); MCV 90.5 FL (83-99); PLATELET COUNT 252 K/uL (156-360); RBC DIS.WIDTH-CV 13.7 % (11.8-14.6); RBC DIS.WIDTH-SD 43.9 % (39-53); RED BLOOD COUNT 4.62 M/uL (3.80-5.20); WHITE BLOOD COUNT 13.1 K/uL (4.1-10.2)
[2017-08-01] VITALS (7 sets, daily range): BP systolic 124–183; BP diastolic 72–99
[2017-08-01] MEDS ORDERED: DUONEB 2.5-0.5 M3 ML AEROSOL (13:29)
[2017-08-01] MEDS ORDERED: ACETAMINOPHEN-1 EAC1 PO (13:29)
[2017-08-01] MEDS ORDERED: THEOPHYLLINE400 MG PO (13:29)
[2017-08-01] MEDS ORDERED: SPIRIVA1 INHALATI IH (13:29)
[2017-08-01] MEDS ORDERED: ZESTORETIC 20-1 EAC1 PO (13:29)
[2017-08-01] MEDS ORDERED: PREDNISONE10 MG PO (13:29)
[2017-08-01] MEDS ORDERED: METFORMIN HCL1000 MG PO (13:29)
[2017-08-01] MEDS ORDERED: LIDOCARE1 EACH TP (13:29)
[2017-08-01] MEDS ORDERED: TRAMADOL HCL50 MG PO (13:29)
[2017-08-01] MEDS ORDERED: GLIPIZIDE5 MG PO (13:29)
[2017-08-02 03:20] VITALS: BP 130/76
[2017-08-02 06:29] LABS: HEMATOCRIT 45.1 % (36.0-46.0); HEMOGLOBIN 15.3 G/DL (11.9-15.5); MCH 29.7 PG (29.0-34.0); MCHC 33.9 G/DL (30.0-36.0); MCV 87.6 FL (83-99); NRBC (%) 0.2 /100 WBC (0-0); PLATELET COUNT 228 K/uL (156-360); RBC DIS.WIDTH-CV 13.8 % (11.8-14.6); RBC DIS.WIDTH-SD 43.6 % (39-53); RED BLOOD COUNT 5.15 M/uL (3.80-5.20); WHITE BLOOD COUNT 11.3 K/uL (4.1-10.2)
[2017-08-02 09:00] VITALS: BP 180/107
[2017-08-02] MEDS ORDERED: NOVOLOG PE100 UNITS/ SC (10:20)
[2017-08-02] MEDS ORDERED: SINGULAIR10 MG PO (10:20)
== END 2017-08-02 14:04 | disposition home health service (06) | DRG 189 ==
LOC: EME 13:06 → 4EAST 15:59 → EDOF 15:59 → ENRESERV 16:00 → CANRESERV 16:00 → EDOF 16:29 → ENRESERV 16:31 → 4EAST 19:47
PROVIDERS: Hospitalist; Internal Medicine; Internal Medicine Pulmonary Disease; Physician Assistant
PROC: 5A09357 Assistance with Respiratory Ventilation, Less than 24 Consecutive Hours, Continuous Positive Airway Pressure (ICD-10-PCS; principal; 2017-07-29)
DX: J96.01 Acute respiratory failure with hypoxia (principal); J44.1 Chronic obstructive pulmonary disease with (acute) exacerbation; J44.0 Chronic obstructive pulmonary disease with (acute) lower respiratory infection; J20.9 Acute bronchitis, unspecified; J96.02 Acute respiratory failure with hypercapnia; I27.20 Pulmonary hypertension, unspecified; J45.901 Unspecified asthma with (acute) exacerbation; E66.2 Morbid (severe) obesity with alveolar hypoventilation; Z68.41 Body mass index [BMI] 40.0-44.9, adult; I10 Essential (primary) hypertension; E11.9 Type 2 diabetes mellitus without complications; G89.4 Chronic pain syndrome; F31.9 Bipolar disorder, unspecified; G43.909 Migraine, unspecified, not intractable, without status migrainosus; Z79.84 Long term (current) use of oral hypoglycemic drugs; Z87.891 Personal history of nicotine dependence; Z91.19 Patient's noncompliance with other medical treatment and regimen
CPT/HCPCS: 36600; 71046; 71275; 80048; 80053; 80076; 80198; 80306 90; 81003; 82803; 82948; 83690; 83880; 84484; 85025; 85027; 85379; 87086; 93005; 94640; 94640 76; 94660; 94667; 94668; 94760; 94799; 99202; 99281; 99285; J0360; J0456; J0692; J1650; J1815; J2270; J2930; J3010; J7512

== ENCOUNTER 2017-08-05 13:42 | Emergency (ER) | payer OTHER ==
[~2017-08-05] VITALS: Ht 162.6 cm; Wt 178.9 kg
[~2017-08-05 13:42] MED LIST changes: +GLIPIZIDE5 MG PO; +LIDOCARE1 EACH TP; +METFORMIN HCL1000 MG PO; +NOVOLOG PE100 UNITS/ SC; +SPIRIVA1 INHALATI IH; +THEOPHYLLINE400 MG PO
[2017-08-05 14:47] LABS: CHLORIDE 99 mEq/L (99-109); SODIUM 135 mEq/L (136-147)
[2017-08-05 14:49] LABS: GLUCOSE 146 mg/dL (70-99); POTASSIUM 3.6 mEq/L (3.7-5.4)
[2017-08-05 14:53] LABS: CREATININE 1.2 mg/dL (0.6-1.3); GFR ESTIMATE (CALCULATED) 55 mL/min/
[2017-08-05 14:54] LABS: UREA NITROGEN (BUN) 31 mg/dL (9-23)
[2017-08-05] MEDS ORDERED: TYLENOL WITH C1 EACH PO (15:45)
[2017-08-05 16:31] LABS: BASOPHIL (%) 0.2 % (0-1); EOSINOPHIL (%) 2.9 % (0-5); EOSINOPHIL COUNT 0.4 K/uL (0-0.3); HEMOGLOBIN 15.9 G/DL (11.9-15.5); IMMATURE GRANULOCYTE (%) 0.6 % (0.0-0.7); LYMPHOCYTE (%) 22.6 % (15-42); LYMPHOCYTE COUNT 3.1 K/uL (1.0-2.8); MCH 29.9 PG (29.0-34.0); MCHC 33.8 G/DL (30.0-36.0); MCV 88.5 FL (83-99); MONOCYTE (%) 8.7 % (3-12); MONOCYTE COUNT 1.2 K/uL (0-0.8); PLATELET COUNT 268 K/uL (156-360); RBC DIS.WIDTH-CV 13.8 % (11.8-14.6); RBC DIS.WIDTH-SD 44.8 % (39-53); RED BLOOD COUNT 5.31 M/uL (3.80-5.20); WHITE BLOOD COUNT 13.9 K/uL (4.1-10.2)
[2017-08-05 16:40] VITALS: BP 109/73
== END 2017-08-05 16:41 | disposition home or self-care (01) ==
LOC: EME 13:42
PROVIDERS: Emergency Medicine
DX: R53.1 Weakness (principal); R03.1 Nonspecific low blood-pressure reading; J44.9 Chronic obstructive pulmonary disease, unspecified; I10 Essential (primary) hypertension; E11.9 Type 2 diabetes mellitus without complications; Z79.84 Long term (current) use of oral hypoglycemic drugs; Z87.891 Personal history of nicotine dependence
CPT/HCPCS: 80048; 85025; 85025 91; 93005; 99281; 99285; J1885

== ENCOUNTER 2017-08-07 10:45 | Inpatient (IN) | payer OTHER ==
[~2017-08-07] VITALS: Ht 162.6 cm; Wt 184.1 kg
[2017-08-07 11:18] LABS: BASOPHIL (%) 0.3 % (0-1); EOSINOPHIL (%) 3.5 % (0-5); EOSINOPHIL COUNT 0.3 K/uL (0-0.3); HEMATOCRIT 43.6 % (36.0-46.0); HEMOGLOBIN 14.9 G/DL (11.9-15.5); IMMATURE GRANULOCYTE (%) 0.5 % (0.0-0.7); LYMPHOCYTE COUNT 2.2 K/uL (1.0-2.8); MCH 30.1 PG (29.0-34.0); MCHC 34.2 G/DL (30.0-36.0); MCV 88.1 FL (83-99); MONOCYTE (%) 10.2 % (3-12); NEUTROPHIL (%) 62.5 % (45-76); PLATELET COUNT 276 K/uL (156-360); RBC DIS.WIDTH-CV 13.8 % (11.8-14.6); RBC DIS.WIDTH-SD 44.2 % (39-53); RED BLOOD COUNT 4.95 M/uL (3.80-5.20); WHITE BLOOD COUNT 9.6 K/uL (4.1-10.2)
[2017-08-07 11:28] LABS: ALBUMIN 3.8 g/dL (3.2-4.8); CHLORIDE 99 mEq/L (99-109); POTASSIUM 3.8 mEq/L (3.7-5.4); SODIUM 133 mEq/L (136-147)
[2017-08-07 11:30] LABS: TOTAL PROTEIN 6.2 g/dL (6.4-8.3)
[2017-08-07 11:32] LABS: GLUCOSE 100 mg/dL (70-99); TOTAL BILIRUBIN 1.1 mg/dL (0.0-1.0)
[2017-08-07 11:33] LABS: ALKALINE PHOSPHATASE 64 IU/L (3-129)
[2017-08-07 11:34] LABS: GFR ESTIMATE (CALCULATED) 27 mL/min/
[2017-08-07 11:35] LABS: AST (GOT) 14 IU/L (2-34)
[2017-08-07 11:36] LABS: CREATININE 2.2 mg/dL (0.6-1.3); UREA NITROGEN (BUN) 51 mg/dL (9-23)
[2017-08-07 11:37] LABS: ALT (GPT) 30 IU/L (3-49); LIPASE 33 U/L (1.0-51.0)
[2017-08-07 11:39] LABS: TROP-I INTERPRETATION NEGATIVE; TROPONIN-I 0.01 ng/mL (0.0-0.30)
[2017-08-07 11:43] LABS: QUANTITATIVE HCG < 4.0 MIU/ML
[2017-08-07] MEDS ORDERED: PREDNISONE10 MG PO (12:46)
[2017-08-07] MEDS ORDERED: CETIRIZINE HCL10 M2 PO (12:47)
[2017-08-07] MEDS ORDERED: DESYREL 150 MG150 MG PO (12:47)
[2017-08-07] MEDS ORDERED: KLONOPIN0.5 M1 PO (12:48)
[2017-08-07 16:58] VITALS: BP 124/71
[2017-08-07 18:19] LABS: CHLORIDE 102 MEQ/L (99-109); CREATININE 1.9 MG/DL (0.6-1.3); GFR ESTIMATE (CALCULATED) 32 mL/min/; GLUCOSE 95 mg/dL (70-99); POTASSIUM 3.8 MEQ/L (3.7-5.4); SODIUM 134 MEQ/L (136-147); UREA NITROGEN (BUN) 43 mg/dL (9-23)
[2017-08-07 19:41] LABS: APPEARANCE SL.HAZY ((CLEAR)); BILIRUBIN NEGATIVE; BLOOD SMALL; COLOR YELLOW ((YELLOW)); GLUCOSE (STRIP) NEGATIVE; KETONES NEGATIVE; LEUKOCYTES LARGE; NITRITE NEGATIVE; PROTEIN (STRIP) NEGATIVE; SPECIFIC GRAVITY 1.012 (1.000-1.030); UROBILINOGEN 0.2 MG/DL (0.2-1.0)
[2017-08-07 19:54] LABS: BACTERIA RARE /HPF; EPITHELIAL CELLS RARE /HPF; HYALINE CASTS 0-5 /LPF; MUCUS TRACE /LPF; UCUL ADDED? YES; WHITE BLOOD CELLS 20-30 /HPF (0-5)
[2017-08-07 20:00] VITALS: BP 116/57
[2017-08-07 20:01] LABS: UR CREATININE CONCENTRATION 128.7 MG/DL
[2017-08-08] VITALS (7 sets, daily range): BP systolic 90–143; BP diastolic 44–85
[2017-08-08 06:48] LABS: BASOPHIL (%) 0.6 % (0-1); BASOPHIL COUNT 0.1 K/uL (0-0.1); EOSINOPHIL (%) 4.4 % (0-5); EOSINOPHIL COUNT 0.4 K/uL (0-0.3); HEMATOCRIT 40.8 % (36.0-46.0); HEMOGLOBIN 13.2 G/DL (11.9-15.5); IMMATURE GRANULOCYTE (%) 0.7 % (0.0-0.7); LYMPHOCYTE (%) 19.5 % (15-42); LYMPHOCYTE COUNT 1.6 K/uL (1.0-2.8); MCHC 32.4 G/DL (30.0-36.0); MCV 92.7 FL (83-99); MONOCYTE (%) 10.3 % (3-12); MONOCYTE COUNT 0.9 K/uL (0-0.8); NEUTROPHIL (%) 64.5 % (45-76); NEUTROPHIL COUNT 5.4 K/uL (1.8-6.4); PLATELET COUNT 248 K/uL (156-360); RBC DIS.WIDTH-CV 14.1 % (11.8-14.6); RBC DIS.WIDTH-SD 47.8 % (39-53); WHITE BLOOD COUNT 8.4 K/uL (4.1-10.2)
[2017-08-08 06:57] LABS: CHLORIDE 103 MEQ/L (99-109); CREATININE 1.5 MG/DL (0.6-1.3); GFR ESTIMATE (CALCULATED) 42 mL/min/; SODIUM 133 MEQ/L (136-147); UREA NITROGEN (BUN) 35 mg/dL (9-23)
[2017-08-08 06:59] LABS: GLUCOSE 157 mg/dL (70-99); POTASSIUM 4.7 MEQ/L (3.7-5.4)
[2017-08-09] VITALS: BP 130/69
[2017-08-09 04:00] VITALS: BP 137/63
[2017-08-09 06:32] LABS: CHLORIDE 104 MEQ/L (99-109); GLUCOSE 200 mg/dL (70-99); POTASSIUM 4.4 MEQ/L (3.7-5.4)
[2017-08-09 06:34] LABS: CREATININE 0.9 MG/DL (0.6-1.3); GFR ESTIMATE (CALCULATED) > 59 mL/min/; SODIUM 140 MEQ/L (136-147); UREA NITROGEN (BUN) 15 mg/dL (9-23)
[2017-08-09] MEDS ORDERED: [UNRECOGNIZED DRUG - OTHER] MC (08:17)
[2017-08-09] MEDS ORDERED: AMLODIPINE BESYL5 MG PO (08:17)
[2017-08-09 08:27] VITALS: BP 133/82
== END 2017-08-09 10:20 | disposition home health service (06) | DRG 682 ==
LOC: EME 10:45 → EDOF 12:39 → 5SOUTH 12:39 → ENRESERV 12:42 → 5SOUTH 16:18
PROVIDERS: Emergency Medicine; Hospitalist; Internal Medicine
PROC: 5A09357 Assistance with Respiratory Ventilation, Less than 24 Consecutive Hours, Continuous Positive Airway Pressure (ICD-10-PCS; principal; 2017-08-07)
DX: N17.9 Acute kidney failure, unspecified (principal); T46.4X5A Adverse effect of angiotensin-converting-enzyme inhibitors, initial encounter; I95.9 Hypotension, unspecified; J96.01 Acute respiratory failure with hypoxia; E66.01 Morbid (severe) obesity due to excess calories; Z68.44 Body mass index [BMI] 60.0-69.9, adult; E87.1 Hypo-osmolality and hyponatremia; F31.9 Bipolar disorder, unspecified; I27.20 Pulmonary hypertension, unspecified; E11.9 Type 2 diabetes mellitus without complications; I10 Essential (primary) hypertension; J44.9 Chronic obstructive pulmonary disease, unspecified; Z87.891 Personal history of nicotine dependence; K76.0 Fatty (change of) liver, not elsewhere classified; G89.4 Chronic pain syndrome; E86.1 Hypovolemia
CPT/HCPCS: 71045; 76770; 80048; 80048 91; 80053; 81003; 82436; 82570; 82948; 83605; 83690; 84300; 84484; 84702; 85025; 85025 91; 87086; 93005; 94010; 94640; 94640 76; 94660; 94799; 99202; 99281; 99285; J1644; J1885; J2405; J7030; J7512

== ENCOUNTER 2017-09-26 06:07 | Emergency (ER) | payer OTHER ==
[~2017-09-26] VITALS: Ht 162.6 cm; Wt 176.6 kg
[~2017-09-26 06:07] MED LIST changes: +CETIRIZINE HCL10 M2 PO; +DESYREL 150 MG150 MG PO; +[UNRECOGNIZED DRUG - OTHER] MC
[2017-09-26 07:57] LABS: HEMATOCRIT 45.8 % (36.0-46.0); HEMOGLOBIN 14.8 G/DL (11.9-15.5); MCH 30.2 PG (29.0-34.0); MCHC 32.3 G/DL (30.0-36.0); MCV 93.5 FL (83-99); PLATELET COUNT 264 K/uL (156-360); RBC DIS.WIDTH-CV 15.2 % (11.8-14.6); RBC DIS.WIDTH-SD 52.5 % (39-53); WHITE BLOOD COUNT 7.2 K/uL (4.1-10.2)
[2017-09-26 08:05] LABS: ALBUMIN 4.2 g/dL (3.2-4.8)
[2017-09-26 08:06] LABS: CHLORIDE 104 mEq/L (99-109); POTASSIUM 3.9 mEq/L (3.7-5.4); SODIUM 142 mEq/L (136-147)
[2017-09-26 08:08] LABS: GLUCOSE 79 mg/dL (70-99); TOTAL PROTEIN 6.4 g/dL (6.4-8.3)
[2017-09-26 08:10] LABS: TOTAL BILIRUBIN 0.6 mg/dL (0.0-1.0)
[2017-09-26 08:11] LABS: ALKALINE PHOSPHATASE 51 IU/L (3-129)
[2017-09-26 08:12] LABS: GFR ESTIMATE (CALCULATED) > 59 mL/min/
[2017-09-26 08:13] LABS: AST (GOT) 29 IU/L (2-34); UREA NITROGEN (BUN) 6 mg/dL (9-23)
[2017-09-26 08:15] LABS: ALT (GPT) 38 IU/L (3-49)
[2017-09-26 08:21] LABS: QUANTITATIVE HCG < 4.0 MIU/ML
[2017-09-26 10:22] LABS: COCAINE NEGATIVE (150 ng/mL); METHAMPHETAMINE NEGATIVE (500 ng/mL); PHENCYCLIDINE NEGATIVE (25 ng/mL); THC CANNABINOIDS NEGATIVE (50 ng/mL)
[2017-09-26 10:23] LABS: AMPHETAMINE NEGATIVE (500 ng/mL); BARBITURATES PRESUMPTIVE POSITIVE (200 ng/mL); BENZODIAZEPINES NEGATIVE (150 ng/mL); BUPRENORPHINE NEGATIVE (10 ng/mL); METHADONE NEGATIVE (200 ng/mL); OPIATES (MORPHINE) NEGATIVE (100 ng/mL); OXYCODONE NEGATIVE (100 ng/mL); PROPOXYPHENE NEGATIVE (300 ng/mL); TRICYCLIC ANTIDEPRESSANTS PRESUMPTIVE POSITIVE (300 ng/mL)
[2017-09-26] MEDS ORDERED: PREDNISONE20 MG PO (10:27)
[2017-09-26 11:19] LABS: APPEARANCE HAZY ((CLEAR)); BILIRUBIN NEGATIVE; BLOOD SMALL; COLOR STRAW ((YELLOW)); GLUCOSE (STRIP) NEGATIVE; KETONES NEGATIVE; LEUKOCYTES LARGE; NITRITE NEGATIVE; PROTEIN (STRIP) TRACE; UROBILINOGEN 0.2 MG/DL (0.2-1.0)
[2017-09-26 11:22] LABS: BACTERIA 2+ /HPF; EPITHELIAL CELLS NONE SEEN /HPF; MUCUS NONE SEEN /LPF; UCUL ADDED? YES; WHITE BLOOD CELLS 30-40 /HPF (0-5)
[2017-09-26] MEDS ORDERED: BACTRIM,SEPT1 TABLET PO (12:19)
[2017-09-26 12:44] VITALS: BP 145/87
== END 2017-09-26 12:45 | disposition home or self-care (01) ==
LOC: EME 06:07
PROVIDERS: Emergency Medicine
DX: J45.901 Unspecified asthma with (acute) exacerbation (principal); N39.0 Urinary tract infection, site not specified; E66.01 Morbid (severe) obesity due to excess calories; Z68.44 Body mass index [BMI] 60.0-69.9, adult; F32.9 Major depressive disorder, single episode, unspecified; I10 Essential (primary) hypertension; F41.9 Anxiety disorder, unspecified; K21.9 Gastro-esophageal reflux disease without esophagitis; J43.9 Emphysema, unspecified; Z88.5 Allergy status to narcotic agent; Z87.891 Personal history of nicotine dependence
CPT/HCPCS: 71046; 80053; 81003; 83880; 84702; 84999; 85027; 87086; 94640; 99281; 99285; J2930

== ENCOUNTER 2017-10-21 08:52 | Inpatient (IN) | payer OTHER ==
[~2017-10-21] VITALS: Ht 162.6 cm; Wt 168.1 kg
[~2017-10-21 08:52] MED LIST changes: -AMBIEN CR12.5 MG PO; +AMBIEN5 MG PO
[2017-10-21 09:19] LABS: HEMATOCRIT 44.5 % (36.0-46.0); HEMOGLOBIN 14.9 G/DL (11.9-15.5); MCH 30.3 PG (29.0-34.0); MCHC 33.5 G/DL (30.0-36.0); MCV 90.6 FL (83-99); PLATELET COUNT 316 K/uL (156-360); RBC DIS.WIDTH-CV 13.8 % (11.8-14.6); RBC DIS.WIDTH-SD 46.3 % (39-53); RED BLOOD COUNT 4.91 M/uL (3.80-5.20); WHITE BLOOD COUNT 8.5 K/uL (4.1-10.2)
[2017-10-21 09:31] LABS: CHLORIDE 108 mEq/L (99-109); POTASSIUM 4.2 mEq/L (3.7-5.4); SODIUM 141 mEq/L (136-147)
[2017-10-21 09:33] LABS: GLUCOSE 116 mg/dL (70-99)
[2017-10-21 09:36] LABS: CREATININE 0.9 mg/dL (0.6-1.3); GFR ESTIMATE (CALCULATED) > 59 mL/min/
[2017-10-21 10:05] LABS: UREA NITROGEN (BUN) 4 mg/dL (9-23)
[2017-10-21] MEDS ORDERED: NORVASC10 MG PO (12:32)
[2017-10-21] MEDS ORDERED: LITHIUM CARBON300 M2 PO ×2 (12:33→12:35)
[2017-10-21] MEDS ORDERED: NOVOLOG PE100 UNITS/ SC (12:37)
[2017-10-21] MEDS ORDERED: INCRUSE ELLI62.5 MCG IH (12:38)
[2017-10-21] MEDS ORDERED: MONTELUKAST SOD10 MG PO (12:38)
[2017-10-21] MEDS ORDERED: APRESOLINE25 MG PO (12:38)
[2017-10-21] MEDS ORDERED: GLIPIZIDE5 MG PO (12:39)
[2017-10-21] MEDS ORDERED: METFORMIN HCL500 M1 PO (12:39)
[2017-10-21] MEDS ORDERED: OMEPRAZOLE40 M1 PO (12:39)
[2017-10-21] MEDS ORDERED: ADVAIR 500/501 DISK IH (12:40)
[2017-10-21 14:15] VITALS: BP 174/104
[2017-10-21 15:27] LABS: ALBUMIN 4.6 G/DL (3.2-4.8); ALKALINE PHOSPHATASE 75 IU/L (3-129); ALT (GPT) 20 IU/L (3-49); AST (GOT) 16 IU/L (2-34); DIRECT BILIRUBIN 0.1 mg/dL (0.0-0.3); LIPASE 16 U/L (1.0-51.0); TOTAL BILIRUBIN 0.8 MG/DL (0.0-1.0); TOTAL PROTEIN 6.5 G/DL (6.4-8.3)
[2017-10-21 15:56] VITALS: BP 137/73
[2017-10-21 19:41] VITALS: BP 142/76
[2017-10-22 00:02] VITALS: BP 140/88
[2017-10-22 03:30] VITALS: BP 136/97
[2017-10-22 07:37] VITALS: BP 152/76
[2017-10-22 15:55] VITALS: BP 160/80
[2017-10-22 19:43] VITALS: BP 142/80
[2017-10-23] VITALS (8 sets, daily range): BP systolic 131–171; BP diastolic 64–110
[2017-10-23 05:28] LABS: BASOPHIL (%) 0.2 % (0-1); EOSINOPHIL (%) 0.1 % (0-5); HEMATOCRIT 43.9 % (36.0-46.0); HEMOGLOBIN 14.5 G/DL (11.9-15.5); IMMATURE GRANULOCYTE (%) 0.6 % (0.0-0.7); LYMPHOCYTE (%) 7.5 % (15-42); LYMPHOCYTE COUNT 0.9 K/uL (1.0-2.8); MCH 30.1 PG (29.0-34.0); MCV 91.3 FL (83-99); MONOCYTE (%) 3.2 % (3-12); MONOCYTE COUNT 0.4 K/uL (0-0.8); NEUTROPHIL (%) 88.4 % (45-76); NEUTROPHIL COUNT 10.1 K/uL (1.8-6.4); PLATELET COUNT 340 K/uL (156-360); RBC DIS.WIDTH-CV 13.9 % (11.8-14.6); RBC DIS.WIDTH-SD 47.1 % (39-53); RED BLOOD COUNT 4.81 M/uL (3.80-5.20); WHITE BLOOD COUNT 11.4 K/uL (4.1-10.2)
[2017-10-23 05:48] LABS: CHLORIDE 105 MEQ/L (99-109); CREATININE 0.8 MG/DL (0.6-1.3); GFR ESTIMATE (CALCULATED) > 59 mL/min/; POTASSIUM 4.5 MEQ/L (3.7-5.4); SODIUM 140 MEQ/L (136-147); UREA NITROGEN (BUN) 11 mg/dL (9-23)
[2017-10-23 05:54] LABS: GLUCOSE 213 mg/dL (70-99)
[2017-10-24] VITALS (8 sets, daily range): BP systolic 138–175; BP diastolic 72–111
[2017-10-24 05:47] LABS: BASOPHIL (%) 0.2 % (0-1); EOSINOPHIL (%) 0 % (0-5); HEMATOCRIT 47.3 % (36.0-46.0); HEMOGLOBIN 15.2 G/DL (11.9-15.5); IMMATURE GRANULOCYTE (%) 0.9 % (0.0-0.7); LYMPHOCYTE COUNT 0.8 K/uL (1.0-2.8); MCH 29.6 PG (29.0-34.0); MCHC 32.1 G/DL (30.0-36.0); MONOCYTE (%) 4.7 % (3-12); MONOCYTE COUNT 0.5 K/uL (0-0.8); NEUTROPHIL (%) 86.2 % (45-76); PLATELET COUNT 343 K/uL (156-360); RBC DIS.WIDTH-CV 13.9 % (11.8-14.6); RBC DIS.WIDTH-SD 47.1 % (39-53); RED BLOOD COUNT 5.14 M/uL (3.80-5.20); WHITE BLOOD COUNT 10.4 K/uL (4.1-10.2)
[2017-10-24 06:09] LABS: CHLORIDE 104 MEQ/L (99-109); CREATININE 0.8 MG/DL (0.6-1.3); GFR ESTIMATE (CALCULATED) > 59 mL/min/; GLUCOSE 236 mg/dL (70-99); POTASSIUM 4.3 MEQ/L (3.7-5.4); SODIUM 138 MEQ/L (136-147); UREA NITROGEN (BUN) 12 mg/dL (9-23)
[2017-10-25 04:05] VITALS: BP 132/79
[2017-10-25 08:06] VITALS: BP 155/99
[2017-10-25] MEDS ORDERED: PRAZOSIN HCL1 MG PO (10:29)
[2017-10-25] MEDS ORDERED: APRESOLINE50 MG PO (10:29)
[2017-10-25] MEDS ORDERED: PRAVASTATIN SOD80 MG PO (10:29)
[2017-10-25] MEDS ORDERED: QUETIAPINE FUM400 MG PO (10:31)
[2017-10-25] MEDS ORDERED: QUETIAPINE FUM100 MG PO (10:31)
[2017-10-25] MEDS ORDERED: MEDROL DOSEPAK4 MG PO (10:33)
[2017-10-25] MEDS ORDERED: AUGMENTIN875 MG PO (10:33)
[2017-10-25] MEDS ORDERED: ACETAMINOPHEN-1 EAC1 PO (10:33)
[2017-10-25 12:25] VITALS: BP 167/105
== END 2017-10-25 13:04 | disposition home or self-care (01) | DRG 192 ==
LOC: EME 08:52 → EDOF 11:55 → ENRESERV 11:55 → 4SOUTH 14:05 → ENPENDDIS 10-25 10:43 → 4SOUTH 10-25 13:04
PROVIDERS: Emergency Medicine; Hospitalist; Internal Medicine
DX: J44.1 Chronic obstructive pulmonary disease with (acute) exacerbation (principal); J44.0 Chronic obstructive pulmonary disease with (acute) lower respiratory infection; J20.9 Acute bronchitis, unspecified; I10 Essential (primary) hypertension; R09.02 Hypoxemia; F32.9 Major depressive disorder, single episode, unspecified; F41.9 Anxiety disorder, unspecified; F12.90 Cannabis use, unspecified, uncomplicated; E11.9 Type 2 diabetes mellitus without complications; K21.9 Gastro-esophageal reflux disease without esophagitis; G43.909 Migraine, unspecified, not intractable, without status migrainosus; F43.10 Post-traumatic stress disorder, unspecified; F60.3 Borderline personality disorder; G47.00 Insomnia, unspecified; K29.70 Gastritis, unspecified, without bleeding; Z87.891 Personal history of nicotine dependence; Z82.49 Family history of ischemic heart disease and other diseases of the circulatory system; Z79.4 Long term (current) use of insulin; Z79.899 Other long term (current) drug therapy; Z90.710 Acquired absence of both cervix and uterus; Z91.410 Personal history of adult physical and sexual abuse; Z91.411 Personal history of adult psychological abuse
CPT/HCPCS: 71045; 71046; 74177; 80048; 80076; 82948; 83690; 85025; 85027; 94640; 94660; 94669; 94760; 94799; 99281; 99285; G0378; J0360; J0696; J1650; J1815; J2930; J7512